=== PATIENT | female | born 1965 ===

== ENCOUNTER 2021-05-24 06:57 | Outpatient (CLI) | payer BC, SELFPAY ==
[2021-05-24 07:34] LABS: Alanine Aminotransferase 66 U/L (4-35); Albumin Level 4.5 g/dL (3.5-5.1); Alkaline Phosphatase 81 U/L (38-126); Anion Gap 7 mmol/L (8-16); Aspartate Amino Transferase 63 U/L (14-36); Bilirubin,Total 0.5 mg/dL (0.2-1.3); Blood Urea Nitrogen 13 mg/dL (7-17); Calcium 8.8 mg/dL (8.4-10.2); Carbon Dioxide 24 mmol/L (22-30); Chloride 106 mmol/L (98-107); Cholesterol 238 mg/dL (0-200); Estimated Glomerular Filt Rate > 60; Glucose 96 mg/dL (65-110); HDL Direct 62 mg/dL; Potassium 4.1 mmol/L (3.4-5.0); Sodium 137 mmol/L (137-145); Triglycerides 153 mg/dL (<150)
[2021-05-24 07:37] LABS: Basophils Absolute Auto 0.1 K/mm3 (0.0-0.1); Basophils Percent Auto 1.4 % (0.2-1.2); Eosinophils Absolute Auto 0.2 K/mm3 (0-0.3); Eosinophils Percent Auto 2.3 % (0-4.4); Hematocrit 48.8 % (37.0-47.0); Hemoglobin 16.3 g/dL (12.0-15.0); Immature Granulocyte Absolute 0.01 K/mm3 (0.00-0.031); Immature Granulocyte Percent A 0.2 % (0-0.5); Immature Platelet Fraction Pct 8.8 % (0.9-11.2); Lymphocytes Absolute Auto 2.56 K/mm3 (0.9-3.2); Lymphocytes Percent Auto 38.6 % (18.3-44.2); Mean Corpuscular HGB Conc 33.4 g/dl (32-36); Mean Corpuscular Volume 98.8 fl (80-100); Mean Platelet Volume 11.7 fl (7.4-10.4); Monocytes Absolute Auto 0.7 K/mm3 (0.1-0.6); Monocytes Percent Auto 10.6 % (2.6-8.5); Neutrophils Absolute Auto 3.1 K/mm3 (1.3-6.7); Neutrophils Percent Auto 46.9 % (45.5-73.1); Platelet Count Result 127 k/mm3 (150-375); Red Blood Count 4.94 M/mm3 (4.2-5.4); Red Cell Distribution Width 15.5 % (11.5-14.5); White Blood Count 6.6 K/mm3 (4.5-10.0)
[2021-05-24 07:45] LABS: LDL Cholesterol Direct 141 mg/dL
== END 2021-05-24 06:58 | disposition home or self-care (01) ==
LOC: ANHLAB 07:01
PROVIDERS: PCP Family Medicine; Visit Provider Physician Assistant Medical
DX: I10 Essential (primary) hypertension (principal); Z13.220 Encounter for screening for lipoid disorders
CPT/HCPCS: 36415; 80053; 80061; 84443; 85025; 85055

== ENCOUNTER 2021-06-02 19:10 | Emergency (ER) | payer BC, SELFPAY ==
[2021-06-02 19:52] VITALS: BP 229/118; PULSE 97; RESP 18; TEMP 36.6; O2SAT 98
--- NOTE | 2021-06-02 20:49 | PC.NURSE ---
pt left before being seen by provider at this time. pt states i cant wait any longer.
== END 2021-06-02 21:39 | disposition left against medical advice (07) ==
PROVIDERS: PCP Family Medicine
DX: R51.9 Headache, unspecified (principal)
CPT/HCPCS: 99199

== ENCOUNTER 2024-04-24 12:02 | Emergency (ER) | payer OTHER, SELFPAY ==
--- NOTE | ~2024-04-24 | XR_ITS ---
EXAMINATION: XR ankle LT min 3V DATE: 04/24/2024 12:54 INDICATION: Lateral left ankle pain. Injury. TECHNIQUE: 4 views of left ankle were obtained. COMPARISON: None. FINDINGS: Alignment is normal. No fracture. Joint spaces are normal. There is an enthesophyte at plan tar aspect of calcaneal tuberosity. IMPRESSION: 1. No fracture. Reviewed, dictated and finalized at location A. [facility] IMPRESSION: 1. No fracture.
[2024-04-24 12:15] VITALS: BP 196/97; PULSE 108; RESP 16; TEMP 37; O2SAT 97
--- NOTE | 2024-04-24 12:21 | ED.LOWEXIN ---
HPI - Extremity Injury (Lower) General Chief Complaint: Extremity Injury, Lower Stated Complaint: Injured Left Ankle Source: patient Mode of arrival: ambulatory Limitations: no limitations History of Present Illness HPI Narrative: 58 y/o female presented for c/o left ankle pain x2 days. States she fell out of bed causing her to twist the ankle. Has been able to bear weight. Reports swelling to outer ankle, and tender to touch. Denies bruising, deformity, numbness, tingling or weakness of the extremity. Took ibuprofen and had RENATO wrap. Related Data Home Medications ?Medication ?Instructions ?Recorded ?Confirmed ?Last Taken ?Type aspirin 81 mg capsule,delayed mg PO 07/01/21 08/11/21 Unknown History release folic acid 1 mg tablet 1 mg PO DAILY 07/27/21 08/11/21 Unknown History nicotine 14 mg/24 hr daily 1 patch transdermal DAILY 07/27/21 08/11/21 Unknown History transdermal patch potassium chloride 20 mEq 20 meq PO DAILY 07/27/21 08/11/21 Unknown History tablet,extended release thiamine HCl (vitamin B1) 100 mg 100 mg PO DAILY 07/27/21 08/11/21 Unknown History tablet Allergies Allergy/AdvReac Type Severity Reaction Status Date / Time No Known Allergies Allergy Mild Verified 04/24/24 12:10 Review of Systems Review of Systems: CONSTITUTIONAL: Denies body aches, fever, chills CARDIOVASCULAR: Denies chest pain, palpitations, or edema. RESPIRATORY: Denies cough or dyspnea. GASTROINTESTINAL: Denies abdominal pain, nausea, vomiting, or diarrhea. SKIN: Denies rash, itching, or wounds. MUSCULOSKELETAL: reports left ankle pain NEUROLOGIC: Denies numbness, tingling, or weakness. All systems reviewed & are unremarkable except as noted in HPI and below PMFSH Past Medical History Medical History BMI greater than 30 BMI 31.0-31.9,adult BMI 30.0-30.9,adult BMI 32.0-32.9,adult Surgical History Surgical History H/O Spinal surgery Family History Family History Father Alcoholic cirrhosis of liver Mother , C-diff C. difficile colitis Hypertension Sibling Diabetes mellitus Heart disease Social History Social History Smoking status: Current every day smoker Tobacco type: cigarettes Second hand tobacco smoke exposure: Yes Alcohol intake: current Substance use: current Substance use type: marijuana Other substance usage details: medical marijuana Living arrangements: with roommate(s) Occupation/Education: occupation Additional occupation/education comments: [employer] Gender identity (if verbalized by the patient): Female Comments At time of signature, I have reviewed and agree with nursing past medical, surgical, social and family history unless otherwise noted. Please see nursing chart for further information. There is no relevant family history pertinent to the presenting complaint Exam Narrative: GENERAL: Well-appearing CHEST: Speaks in full sentences. No respiratory distress. HEART: Regular rate and rhythm. Normal and equal peripheral pulses. EXTREMITIES: Left foot has normal strength and sensation, Full range of motion with flexion/extension/rotation of ankle, but endorses pain with movement at ankle. Left lateral ankle swelling with tenderness to palpation reported. No ecchymosis, No open wounds, or obvious deformity; alignment normal, pulse palpable and equal bilaterally, skin warm, dry, pink. Capillary refill less than 3 seconds. Utilizing w/c. SKIN: Warm, dry, no rash. NEURO: Alert and oriented x3. PSYCH: Normal mood and affect Course Course Emergency Course: Patient is aware of diagnosis, understands and agrees to treatment plan. Anticipatory guidance given. Patient agrees to follow-up as directed and is aware of reasons to seek care at the emergency department. Portions of this record may have been created with voice recognition software Level of Care: Express Care Visit Vital Signs Vital signs: Vital Signs Temperature 98.6 F 04/24/24 12:15 Pulse Rate 108 H 04/24/24 12:15 Respiratory Rate 16 04/24/24 12:15 Blood Pressure 196/97 H 04/24/24 12:15 Pulse Oximetry 97 04/24/24 12:15 Temperature 98.6 F 04/24/24 12:15 Pulse Rate 108 H 04/24/24 12:15 Respiratory Rate 16 04/24/24 12:15 Blood Pressure 196/97 H 04/24/24 12:15 Pulse Oximetry 97 04/24/24 12:15 Reviewed MDM - Extremity Injury (Lower) MDM Narrative Medical decision making narrative: Discussed physical exam findings and x-ray. Renato wrap applied to left ankle. Advised supportive measures and signs/symptoms to go to the ER. Pt is appropriate for outpt treatment and f/u. Differential Diagnosis Differential diagnosis: Likely ankle sprain and strain and ankle fracture Imaging Data Radiologist's impression: Patient: Marva Joyner : 1965 MR#: [id number] Age: 58 Acct:[id number] Loc: [facility] ADM Date: 04/24/24Attending Dr: Ordering Physician: Susannah Decker APRN Date of Service: 04/24/24 Procedure(s): XR ankle LT min 3V Accession Number(s): [id number] cc: Susannah Decker APRN; Ankit, Cooper Villagran APRN~ EXAMINATION: XR ankle LT min 3V DATE: 04/24/2024 12:54 INDICATION: Lateral left ankle pain. Injury. TECHNIQUE: 4 views of left ankle were obtained. COMPARISON: None. FINDINGS: Alignment is normal. No fracture. Joint spaces are normal. There is an enthesophyte at plantar aspect of calcaneal tuberosity. IMPRESSION: 1. No fracture. Discharge Plan Discharge Clinical Impression: Ankle sprain and strain Patient Disposition: Home, Self-Care Condition: Stable Instructions: Ankle Sprain (ED) Additional Instructions: Rest and elevate the left leg; bear weight as tolerated. Avoid running, jumping or excessive walking until symptoms fully resolve. Apply ice 15-20 minute intervals several times a day Keep it wrapped with RENATO or use a soft ankle splint Motrin 800mg every 8 hours, alternate with Tylenol 1000mg every 8 hours as needed pain Follow up with your primary care provider as needed Go to the ER for worsening symptoms or concerns Patient Language: Mongolian Prescriptions: No Action aspirin 81 mg capsule,delayed release(DR/EC) PO folic acid 1 mg tablet 1 mg PO DAILY nicotine 14 mg/24 hr patch 24 hour 1 patch transdermal DAILY potassium chloride 20 mEq tablet extended release 20 meq PO DAILY thiamine HCl (vitamin B1) 100 mg tablet 100 mg PO DAILY sertraline [Zoloft] 25 mg tablet 25 mg PO DAILY Qty: 30 3RF amlodipine [Norvasc] 5 mg tablet 5 mg PO DAILY Qty: 30 2RF losartan 25 mg tablet 25 mg PO DAILY Qty: 30 2RF Follow-up/Referrals: Ankit,Cooper Villagran APRN [Primary Care Provider] - Stand Alone Forms: Work/School Release IP Time of Disposition: 13:08
== END 2024-04-24 13:09 | disposition home or self-care (01) ==
PROVIDERS: Emergency Provider Nurse Practitioner Family; PCP Nurse Practitioner
DX: S93.402A Sprain of unspecified ligament of left ankle, initial encounter (principal); S96.912A Strain of unspecified muscle and tendon at ankle and foot level, left foot, initial encounter; W06.XXXA Fall from bed, initial encounter; F17.210 Nicotine dependence, cigarettes, uncomplicated; F12.90 Cannabis use, unspecified, uncomplicated; Z79.82 Long term (current) use of aspirin
CPT/HCPCS: 73610; 99213; G0463

== ENCOUNTER 2024-08-02 13:49 | Observation (INO) | payer OTHER, SELFPAY ==
[2024-08-02] VITALS (7 sets, daily range): BP systolic 124–183; BP diastolic 67–96; PULSE 93–104; RESP 18–20; TEMP 36.4–36.8; O2SAT 94–96
--- OUTSIDE RECORDS SUMMARY | 2024-08-02 13:50 | XMS_ITS | Continuity of Care Document ---
Author Organization [facility] Address [address] [place] [address] [address] [place] [address] Phone Care Team Providers Care Brim Welt Sewing Machine Operator Name Role Phone Karri Ramos Unavailable Unavailable Advance Directives Directive Yes / No Effective Date File Name No Information Encounters Encounter Description Practice Location Reason(s) For Visit Diagnoses Date Provider Providers Copied on Encounter [facility], [id number] [place] [address] [address], [place], [place], [id number], [place] tel:[phone] [facility] [place] No Information Dec-0 9-200 5 Doisy Edward. [address] [facility] [place] , [address], [place], [address], [place]. tel:[phone] Family History Family Member Type Diagnosis Age At Onset No Information Payers Payer name Insurance type Covered alliance party ID Authoriza tion(s) Medicaid [facility] [id number] Social History Type Description Quantity Date Captured Comments Sex Female Smoking Status No Information Chief Complaint And Reason For Visit No Information Reason For Referral Reason For Referral No Information History Of Present Illness Encounter Date Complaint History Of Prese nt Illness No Information Functional Status Date Functional Assessmen t No Information Instructions Date Instruction Additional Infor mation No Information Assessments Type Assessment Date No Information Patient Care Teams Name Effective Dates (start - stop) Status Members No Information
--- OUTSIDE RECORDS SUMMARY | 2024-08-02 13:51 | XMS_ITS | Clinical Summary ---
Author Organization [facility] Address [address] [facility] [place] [address] Care Team Providers Care Pattern Chain Builder Name Role Phone Vinnie Polanco MD Primary Care Provider [phone] Source Comments [facility],non-owned Affiliates and Associated Physician Practices is amultiple site organization consisting of ambulatory clinics and hospital sitesin [place], [place], [place] and [place]. This disclosure is being madepursuant to the Care Everywhere program and may not contain all information available regarding this patient. Last updated 17.[facility] Health Allergies No known active allergies Social History Tobacco Use Types Packs/Day Years Used Date Smoking Tobacco: Heavy Smoker Cigarettes 1 15 Smokeless Tobacco: Never Tobacco Cessation:Ready to Q uit: No; Counseling Given: Yes Alcohol Use Standard Drinks/Week Comments Yes 0 (1 standard drink = 0.6 oz pur e alcohol) AUDIT-C Answer Date Recorded Q1: How often do you have a drink containing alc ohol? 2-4 times a month 03/10/2021 Q2: How many drinks containi ng alcohol do you have on a typical day when you are drinking? 10 or more 03/10/2021 Q3: How often do you have si x or more drinks on one occasion? 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 Gender Identity Not on file Sexual Orientation Not on file Last Filed Vital Signs Vital Sign Reading Time Taken Comments Blood Pressure 181/102 03/10/2021 11:28 AM CAFETERIA TEAM LEADER Pulse 110 03/10/2021 11:28 AM CAFETERIA TEAM LEADER Temperature 36.8 C (98.2 F) 03/10/2021 11:28 AM CAFETERIA TEAM LEADER Respiratory Rate 14 03/10/2021 11:28 AM CAFETERIA TEAM LEADER Oxygen Saturation - - Inhaled Oxygen Concentration - - Weight 85.1 kg (187 lb 9.6 oz) 03/10/2021 11:28 AM CAFETERIA TEAM LEADER Height 165.1 cm (5' 5) 03/10/2021 11:28 AM CAFETERIA TEAM LEADER Body Mass Index 31.22 03/10/2021 11:28 AM CAFETERIA TEAM LEADER Plan of Treatment Health Maintenance Due Date Last Done Comments COLOGUARD (AGES 45-75) - COL ON CA SCREENING 1965 COLON MONITORING 1965 COLONOSCOPY - COLON CA SCREENING 1967 CT COLONOGRAPHY - COLON CA SCREENING 1965 Colorectal Cancer Screening 1965 FIT - COLON CA SCREENING 1965 FLEX SIG - COLON CA SCREENING 1965 LIPID TESTING 1965 MAMMOGRAM 1965 HIV SCREENING 11/17/1982 HEPATITIS C SCREENING 11/13/1985 DTAP/TDAP/TD VACCINES (1 - Tdap) 11/17/1986 HEPATITIS B VACCINE (1 of 3 - 19+ 3-dose series) 11/17/1986 PNEUMOCOCCAL VACCINE 50+ (1 of 1 - PCV) 11/17/2017 ZOSTER VACCINE (1 of 2) 11/17/2017 COVID-19 VACCINE ( - 2023-2 5 season) 2023 DEPRESSION SCREENING 03/13/2024 INFLUENZA VACCINE (Season Ended) 2024 HIB VACCINE Aged Out No longer eligi ble based on patient's age to complete this topic HPV VACCINE Aged Out No longer eligi ble based on patient's age to complete this topic MENINGOCOCCAL (Group B) VACC INE SHARED DECISION-MAKING Aged Out No longer eligibl e based on patient's age to complete this topic MENINGOCOCCAL GROUPS A/C/Y/W VACCINE Aged Out No longer eligible b ased on patient's age to complete this topic Care Teams Pattern Chain Builder Relationship Specialty Start Date End Date Vinnie Polanco MD [address] [place] [address] PCP - General 06/14/22
--- OUTSIDE RECORDS SUMMARY | 2024-08-02 13:51 | XMS_ITS | Patient Health Record ---
Author Organization [facility] Address [address] [place] [address] Care Team Providers Care Ab Initio Etl Developer Name Role Phone Cooper Pham Primary Care Provider Lashawn Floyd Unavailable [phone] Daniela Mcdonald Unavailable [phone] Allergies No Known Allergies Reason For Referral Reason SOB on exertion, int ermittent chest pain, intermittent BLE requests referral and stress test/workup Diagnosis 1 SOB (shortness of br eath) on exertion (R06.02) Diagnosis 2 Edema of both legs ( R60.0) Referral Organization [facility] Referring Provider First Name Cooper Referring Provider Last Name Ankit [facility]erring [facility] Referred Provider [facility], Cardiology Referred Provider Specialty Cardiology General Notes JULISA Zarate Stephanie N 11/15/2023 08:57:40 AM >will send referral when note from visit is available., JULISA Zarate Stephanie N 11/21/2023 03:02:19 PM >referral faxed. confirmation pending.Tessa RN, Stephanie N 12/13/2023 03:56:08 PM >referral was successfully faxed and a letter mailed notifying Marva. Clinical Notes [facility], Cardiology , [address] [place] [address] [address] , [place], [place] [address], , Referral Priority Routine Medications Medication SIG (Take, Route, Frequency, Duration) Notes Start Date End Date Status amLODIPine Besylate 5 MG 1 tablet Orally Once a day Not-Taking Losartan Potassium 25 MG 1 tablet Orally Once a day Not-Taking hydroCHLOROthiazide 25 MG 1 tablet in morning Orally Once a day Not-Taking Lidocaine 4 % 1 patch as needed Externally Once a day 05/16/2023 Not-Taking Metoprolol Succinate 25 MG 1 capsule Ora lly Once a day Not-Taking dilTIAZem HCl ER Coated Bead s 240 MG 1 capsule Orally Once a day Not-Taking Sertraline HCl 25 MG 1 tablet Orally Once a day Active Furosemide 40 MG TAKE 1 TABLET BY MOUTH DAILY for 30 days As needed Active Social History Tobacco Use: Social History Observation Description Date Details (start date - stop date) Current Smoker NA - NA Sex Assigned At : Social History Observation Description Sex Assigned At Female Dont use, Tobacco Use/Smoking Question Answer Notes Are you a current every day smoker Additional Findings: Tobacco User Moderate cigar ette smoker (10-19 cigs/day) Tobacco Control (Standard) Question Answer Notes Tobacco use: Current smoker Problems Problem Type SNOMED Code ICD Code Onset Dates Problem Status W/U Status Risk Notes Problem Tobacco user (660754140) Nicotine dependence, unspecified, uncomplicated (F17.200) Active confirmed Problem Anxiety disorder (425214080) Anxiety disorder, unspecified (F41.9) Active confirmed Problem Essential hypertension (78024156) Essential (primary) hypertension (I10) 09/19/19 22 Active confirmed Problem 01306967 Tobacco dependen ce (F17.200) Active confirmed Problem Carpal tunnel syndrome (83957838) Carpal tunnel syndrome (G56.00) Active confirmed Problem Trigger finger (7213873) Trigger finger (M65.30) Active confirmed Problem Alcohol use disorder (1877826857) Alcohol use disorder (F10.99) Active confirmed Problem Nicotine dependence (50484723) Nicotine dependence (F17.200) Active confirmed Problem 942057200 Obesity (BMI 30-39.9) (E66.9) Active confirmed Problem Adjustment disorder (69595248) Grief reaction (F43.20) Active confirmed Problem 21563988 Hyperlipidemia, unspecified hyperlipidemia type (E78.5) Active confirmed Problem Obesity (592480430) Obesity, unspecified classification, unspecified obesity type, unspecified whether serious comorbidity present (E66.9) Active confirmed Problem Obese class II (969277343360613 ) Body mass index [BMI] 35.0-35.9, adult (Z68.35) Active confirmed Vital Signs Heart Rate 112 /min 01/25/2024 Temperature 98.9 degrees Fahrenheit 01/25/2024 Respiratory Rate 16 /min 01/25/2024 Oximetry 97 % 01/25/2024 Blood pressure diastolic 82 mm Hg 01/25/2024 Height 65 in 01/25/2024 Blood pressure systolic 146 mm Hg 01/25/2024 Weight 219.6 lbs 01/25/2024 BMI 36.54 kg/m2 01/25/2024 Encounters Encounter Location Date Provider Diagnosis [address] [address] 11/07/2023 Cooper Pham SOB (shortness of breath) on exertion R06.02 ; Edema of both legs R60.0 ; Essential (primary) hypertension I10 ; Hyperlipidemia, unspecified hyperlipidemia type E78.5 ; Screening for metabolic disorder Z13.228 ; Screening for deficiency anemia Z13.0 ; Obesity (BMI 30-39.9) E66.9 ; Nutritional counseling Z71.3 and Nicotine dependence, unspecified, uncomplicated F17.[address] [address] 01/25/2024 Cooper Pham Grief reaction F43.2 0 ; Anxiety disorder, unspecified F41.9 ; Obesity (BMI 30-39.9) E66.9 ; Nutritional counseling Z71.3 and Nicotine dependence, unspecified, uncomplicated F17.[address] [address] 01/29/2024 Lashawn Floyd Grief reaction F43.2 0 and Anxiety disorder, unspecified F41.[address] [address] 02/05/2024 Daniela Mcdonald [facility] [address] [address] 04/23/2024 Cooper Pham Assessments Encounter Date Diagnosis (ICD Code) Assessment Notes Treatment Notes Treatment Clinical Notes Section Notes 11/07/2023 SOB (shortness of breath) on exertion (ICD-10 - R06.02) 11/07/2023 Edema of both legs (ICD-10 - R60.0) 01/25/2024 Anxiety disorder, unspecified (ICD-10 - F41.9) 01/25/2024 Grief reaction (ICD-10 - F43.20) Appointment made with psychiatry, will contact [place] for counseling services. 01/29/2024 Anxiety disorder, unspecified (ICD-10 - F41.9) Continue sertraline. Discussed this is a daily medication, not as needed. Discussed r/b/se. 01/29/2024 Grief reaction (ICD-10 - F43.20) Email sent to Arnulfo Cho to address any local grief groups client may be able to look into, will f/u once response is received. 01/25/2024 Obesity (BMI 30-39.9) (ICD-10 - E66.9) 11/07/2023 Essential (primary) hypertension (ICD-10 - I10) 11/07/2023 Hyperlipidemia, unspecified hyperlipidemia type (ICD-10 - E78.5) 01/25/2024 Nutritional counseling (ICD-10 - Z71.3) 01/25/2024 Nicotine dependence, unspecified, uncomplicated (ICD-10 - F17.200) 11/07/2023 Screening for metabolic disorder (ICD-10 - Z13.228) 11/07/2023 Screening for deficiency anemia (ICD-10 - Z13.0) 11/07/2023 Obesity (BMI 30-39.9) (ICD-10 - E66.9) 11/07/2023 Nutritional counseling (ICD-10 - Z71.3) 11/07/2023 Nicotine dependence, unspecified, uncomplicated (ICD-10 - F17.200) 01/29/2024 Other Reasons, potent ial benefits, potential risks, interactions and side effects of all medications were discussed.The Patient/Guardian asked appropriate questions, appeared to understand the answers, and decided to accept the treatment and continue being followed.Alternatives and expected course without treatment were reviewed.The Patient/Guardian is aware of the need to contact the office or return for an earlier appointment if any problems or concerns arise. May also contact the 24-hour crisis hotline (R), refer to the closest emergency room or call 911 if new symptoms arise of existing symptoms worsen.The Patient/Guardian is aware that this would apply to symptoms like: suicidal ideation, homicidal ideation, high risk behaviors, manic symptoms, psychotic symptoms, physical symptoms, or any other symptoms that may be dangerous to self or others.Greater than 50% of time spent on coordination and counseling where psychopharmacology as well as psychotherapeutic interventions were discussed along with review of treatments in the past.Education provided concerning need for adequate hydration.Patient/Gua rdian verbalized understanding of education, treatment plan and follow up. Plan Of Treatment No Information Insurance Providers Payer Name Payer Address Payer Phone Subscriber Number Group Number Insured Name Patient Relationship to Insured Coverage Start Date Coverage End Date [facility] Plan [address] [place], [place] [id number] [place] [address] [address] [id number] Marva Murray Self - patient is the insured 2 [address] [facility] [address] [place] [address] [id number] Marva Murray Self - patient is the insured [address] [place] [address] [address] [id number] 3 Marva Murray Self - patient is the insured 2 4 Medications Administered Medication Instructions Date of Administration Dosage Notes Vivitrol 10/05/2021 380 mg Pt los well Medical (General) History Medical History History ICD Code Depression Anxiety Hypertension Hx of alcohol abuse Surgical History Surgery Date(Month/Year) 3 lumbar back surgery Right wrist surgery Left breast cyst removal Hospitalization History Reason Date(Month/Year)
--- OUTSIDE RECORDS SUMMARY | 2024-08-02 13:51 | XMS_ITS ---
Author Organization [facility] Address [address] [place] [address] Care Team Providers Care Network And Threat Support Specialist Name Role Phone Cooper Pham Primary Care Provider [phone] REASON FOR VISIT Not eating/ depressed Social History Sex Assigned At : Social History Observation Description Sex Assigned At Female Encounters Encounter Location Date Provider Diagnosis [address] [address] 01/23/2024 Cooper Pham Plan Of Treatment No Information Progress Notes * SANJU ClarashaguftaDOB:[birth year] (58 yo F)Acc No.[id number]:01/23/2024 UNLOCKED PROGRESS NOTE Progress Notes Patient: Marva JOHNSON Provider: PAYTON Vega, AGPCNP-BC :1965 A ge:58 Y S ex:Female Date:01/23/2024 Address:[address] [place], [place] [id number] Subjective: * Chief Complaints: * 1 . Not eating/ depressed. * Medical History: Objective: * Vitals: Assessment: Plan: * Treatment: * * Electronic signature of Christophe Pham APRN, [phone] on 08/02/2024 at 01:51 PM CDT Sign off status: Pending * Provider: Philly Pham, MSN, AGPCNP-BC Date: 1 03/24/2023 Generated for Printing/Faxing/eTransmitting on: 0 08/02/2024 01:51 PM CDT
--- OUTSIDE RECORDS SUMMARY | 2024-08-02 13:51 | XMS_ITS | Data Portability ---
Author Organization [facility] Mihir Prado Address [address] [place] [address] Care Team Providers Care Batch Weigher Name Role Phone GRACIE WELCH Primary Care Provider STELLA HARO Director Of Community Life [phone] Assessment No assessment recorded. Plan of Treatment Reminders Order Date Submit Date Provider Last Modified By Organization Details Last Modified Time Details Appointments [facility] 30 2024 09:00A Arnulfo Nelson MD Not available Not available Not available [facility] 30 2024 01:00P Arnulfo Chacon MD Not available Not available Not available Lab gamm a-gl utam yl burnham sfer ase (ggt ), seru m 2018 019 [facility], [address] [place] [address], [address], [place], [address], 05/01/2018 20:08:48 hepa buddy s C Ab, sign al-t o-cu toff , seru m or plas ma 2018 019 [facility], [address], [address], [place], [address], 04/30/2018 10:31:17 hepa buddy s C viru s RNA, kaylah t, PCR, seru m or plas ma 2018 019 [facility], [address], [address], [place], [address], 05/01/2018 20:08:47 TSH + free T4, seru m 2017 018 [facility], [address], [address], [place], [address], 01/24/2018 06:22:43 HbA1 c (hem oglo bin A1c) , bloo d 2017 018 [facility], [address], [address], [place], [address], 01/24/2018 06:22:45 lipi d mary ellene l, seru m 2017 018 [facility], [address], [address], [place], [address], 01/24/2018 06:22:45 CMP, seru m or plas ma 2017 018 [facility], [address], [address], [place], [address], 01/24/2018 06:22:44 CBC w/ auto diff 2017 018 [facility], [address], [address], [place], [address], 01/24/2018 06:22:43 CK (cre atin e jb se), tota l, seru m 2017 018 [facility], [address], [address], [place], [address], 01/24/2018 06:22:46 feca l occu lt bloo d, immu noas say, stoo l 2017 018 [facility], [address], [address], [place], [address], 01/08/2018 17:45:27 urin ce is, dips tick 2016 017 svjett In-Office Order, Internal Use Only DO Not Attach Compendium DO Not Attach Compendium, Do Not Delete/merge, [id number] 08/19/2016 15:19:25 preg nanc y test , urin e 2016 017 svjett In-Office Order, Internal Use Only DO Not Attach Compendium DO Not Attach Compendium, Do Not Delete/merge, [id number] 08/19/2016 15:19:25 bact eria l vagi nosi s + vagi scott s pane l, vagi nal 2016 017 [facility], [address] [place] [address], [address], [place], [address], 08/23/2016 06:05:17 pap, IG + HPV, cerv ical 2016 017 [facility], [address], [address], [place], [address], 08/23/2016 08:40:48 RPR (rap id plas ma reag in), seru m 2016 017 [facility], [address] [place] [address], [address], [place], [address], 08/20/2016 08:22:18 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) igg Ab, seru m 2016 017 [facility], [address] [place] [address], [address], [place], [address], 08/20/2016 08:22:18 hepa buddy s pane l (A+B +C), acut e, seru m 2016 017 [facility], [address] [place] [address], [address], [place], [address], 08/20/2016 08:22:15 hepa buddy s B surf kelsi Ab, qual itat raghavendra, seru m 2016 017 [facility], [address], [address], [place], [address], 08/20/2016 08:22:17 HIV 1+2 AB + HIV 1 p24 Ag, qual itat raghavendra immu noas say, seru m 2016 017 [facility], [address] Joe [address]ia, [address], [address], 08/20/2016 08:22:18 TSH + free T4, seru m 2016 017 [facility], [address] [place] [address], [address], [place], [address], 08/20/2016 08:22:14 prol acti n, seru m 2016 017 [facility], [address] [place] [address], [address], [place], [address], 08/20/2016 08:22:16 FSH (fol licl e-st imul atin g horm one) , seru m 2016 017 [facility], [address], [address], [place], [address], 08/20/2016 08:22:16 estr adio l, seru m 2016 017 [facility], [address], [address], [place], [address], 08/20/2016 08:22:17 CBC w/ auto diff 2016 017 [facility], [address], [address], [place], [address], 08/20/2016 08:22:15 TSH + free T4, seru m 2016 017 [facility], [address], [address], [place], [address], 08/23/2016 06:05:17 CMP, seru m or plas ma 2016 017 [facility], [address], [address], [place], [address], 07/26/2016 14:32:28 CBC w/ auto diff 2016 017 [facility], [address], [address], [place], [address], 08/23/2016 06:05:18 CK (cre atin e jb se), tota l, seru m 2016 017 [facility], [address], [address], [place], [address], 07/26/2016 14:32:32 HbA1 c (hem oglo bin A1c) , bloo d 2016 017 [facility], [address], [address], [place], [address], 07/26/2016 14:32:35 lipi d malathi l, seru m 2016 017 [facility], [address], [address], [place], [address], 07/26/2016 14:32:33 Referral chir opra ctor refe rral - Plea se fulton and leticia colón ... 2018 019 [email or web address] Not available 08/16/2018 14:14:07 colo nosc opy refe rral - Plea se call aleida ent to emma houser ezekielt . Campbell colón 2018 019 [facility] Not available 08/16/2018 14:33:39 nutr itio nist / buddy an refe rral 2016 0[facility], [address], [place], [address], 09/07/2016 15:42:15 Procedures None minor rded . Surgeries None minor rded . Imaging MAMM O, scre enin g, digi ganesh, bila kane l [address] ([facility]), [address] [place], [address], 01/08/2018 17:53:19 MAMM O, diag nost ic, digi ganesh, bila kane l 2016 017 [facility] ([facility]), [address] [place], [address], 08/22/2016 18:05:43 US, ariel st, bila kane l, w/ axil la 2016 017 [facility] ([facility]), [address] [place], [address], 08/22/2016 18:27:27 US, pelv is, burnham sabd omin al + burnham svag inal [address] ([facility]), [address] [place], [address], 08/19/2016 17:41:35 XR, ches t, 2 view [address] ([facility]), [address], [place], [address], 07/26/2016 14:42:11 Medication Orders losa rtan 100 mg tabl et 2018 019 [id number], [address], [place], [place], [id number], 04/30/2018 10:22:18 amlo dipi ne 5 mg tabl et 2018 019 [facility][id number], [address], [place], [place], [id number], 04/30/2018 10:22:18 idalia laurel 14 mg/2 4 hr gloria y burnham sder mal patc h 2017 018 [facility] #81995, [address], [place], [place], [id number], 01/08/2018 17:47:26 losa rtan 100 mg tabl et 2017 018 [facility] #54265, [address], [place], [place], [id number], 01/08/2018 17:46:07 amlo dipi ne 5 mg tabl et 2017 018 [facility] #79814, [address], [place], [place], [id number], 01/08/2018 17:47:07 idalia laurel 14 mg/2 4 hr gloria y burnham sder mal patc h 2016 017 [facility] #15602, [address], [place], [place], [id number], 07/26/2016 14:28:33 losa rtan 50 mg tabl et 2016 017 [facility] #81012, [address], [place], [place], [id number], 07/26/2016 14:24:10 busp iron e 5 mg tabl et 2016 017 dgriggsma [facility]56335, [address], [place], [place], [id number], 04/30/2018 09:58:01 senthil lopr am 10 mg tabl et 2016 017 [facility] #88675, [address], [place], [place], [id number], 07/26/2016 14:29:12 Patient TargetsNo targets recorded. Patient Instructions Encounter Date Encounter Id Patient Instructions Last Modified By Organization Details Last Modified Time 08/19/2016 [id number] When You Want to Lose Weight: Care Instructions [email or web address] Not available 08/19/2016 14:59:44 elevated blood pressure: care instructions [email or web address] Not available 08/19/2016 15:02:02 Well Visit, Ages 18 to 65: Care Instructions [email or web address] Not available 08/19/2016 15:00:03 breast lumps: care instructions svuyyuru Not available 08/19/2016 14:59:04 hot flashes during menopause: care instructions svuyyuru Not available 08/19/2016 15:02:50 abnormal uterine bleeding: care instructions svuyyuru Not available 08/19/2016 14:48:17 Vaginal Bleeding (Nonpregnancy): Care Instructions [email or web address] Not available 08/19/2016 14:49:23 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 Please eval and treat . Thank you ... Referring Physician: Karri Joseph, Family Medicine, Encounter Date: 04/30/2018 Colonoscopy Referral for Scr eening for malignant neoplasm of colon needs a screening colonoscopy .... Please call patient to schedule appt. Thank you Referring Physician: Karri Joseph, Family Medicine, Encounter Date: 04/30/2018 Results Created Date Observation Date Name Description Value Unit Range Abnormal Flag Note LastModifiedBy Organization Detail LastModifiedTime 08/20/19 17 08/19/2016 pregn carey test, urine HCG negati ve Not Available In-Office Order Internal Use Only DO Not Attach Compendium DO Not Attach Compendium, Do Not Delete/merge, 08/19/2016 14:31:29 08/20/19 17 08/19/2016 urina lysis , dipst ick Leukocytes Negati ve Not Available In-Office Order Internal Use Only DO Not Attach Compendium DO Not Attach Compendium, Do Not Delete/merge, 08/19/2016 14:30:24 08/20/19 17 08/19/2016 urina lysis , dipst ick Nitrite negati ve Not Available In-Office Order Internal Use Only DO Not Attach Compendium DO Not Attach Compendium, Do Not Delete/merge, 08/19/2016 14:30:24 08/20/19 17 08/19/2016 urina lysis , dipst ick Urobilinogen .2 Not Available In-Of fice Order Internal Use Only DO Not Attach Compendium DO Not Attach Compendium, Do Not Delete/merge, 08/19/2016 14:30:24 08/20/19 17 08/19/2016 urina lysis , dipst ick Protein Negati ve Not Available In-Office Order Internal Use Only DO Not Attach Compendium DO Not Attach Compendium, Do Not Delete/merge, 08/19/2016 14:30:24 08/20/1908/19/2016 urina lysis , dipst ick pH 7.0 Not Available In-Office Order Internal Use Only DO Not Attach Compendium DO Not Attach Compendium, Do Not Delete/merge, 08/19/2016 14:30:24 08/20/19 17 08/19/2016 urina lysis , dipst ick Blood Large Not Available In-Office Order Internal Use Only DO Not Attach Compendium DO Not Attach Compendium, Do Not Delete/merge, 08/19/2016 14:30:24 08/20/1908/19/2016 urina lysis , dipst ick Specific [place] 1.015 Not Available In-Off ice Order Internal Use Only DO Not Attach Compendium DO Not Attach Compendium, Do Not Delete/merge, 08/19/2016 14:30:24 08/20/19 17 08/19/2016 urina lysis , dipst ick Ketone Negati ve Not Available In-Office Order Internal Use Only DO Not Attach Compendium DO Not Attach Compendium, Do Not Delete/merge, 08/19/2016 14:30:24 08/20/1908/19/2016 urina lysis , dipst ick Bilirubin Negati ve Not Available In-Office Order Internal Use Only DO Not Attach Compendium DO Not Attach Compendium, Do Not Delete/merge, 08/19/2016 14:30:24 08/20/1908/19/2016 urina lysis , dipst ick Glucose Negati ve Not Available In-Office Order Internal Use Only DO Not Attach Compendium DO Not Attach Compendium, Do Not Delete/merge, 08/19/2016 14:30:24 08/20/1908/20/2016 TSH + free T4, serum TSH 0.724 uIU/m L 0.450- 4.500 Not Available [facility] ([facility]) [address] [place], [address], 08/20/2016 08:22:14 08/20/1908/20/2016 TSH + free T4, serum T4,free(dire ct) 1.08 NG/dL 0.82-1 .77 Not Available [facility] ([facility]) [address] [place], [address], 08/20/2016 08:22:14 08/20/1908/20/2016 CBC w/ auto diff WBC 9.3 x10e3 /uL 3.4-10 .8 Not Available [facility] ([facility]) [address] [place], [address], 08/20/2016 08:22:15 08/20/19 17 08/20/2016 CBC w/ auto diff RBC 4.96 x10e6 /uL 3.77-5 .28 Not Available [facility] ([facility]) [address] [place], [address], 08/20/2016 08:22:15 08/20/19 17 08/20/2016 CBC w/ auto diff hemoglobin 16.3 g/dL 11.1-1 5.9 above high normal Not Available [facility] ([facility]) [address] [place], [address], 08/20/2016 08:22:15 08/20/19 17 08/20/2016 CBC w/ auto diff hematocrit 48.3 % 34.0-4 6.6 above high normal Not Available [facility] ([facility]) [address] [place], [address], 08/20/2016 08:22:15 08/20/19 17 08/20/2016 CBC w/ auto diff MCV 97 fL 79-97 Not Available [facility] ([facility]) [address] [place], [address], 08/20/2016 08:22:15 08/20/19 17 08/20/2016 CBC w/ auto diff MCH 32.9 pg 26.6-3 3.0 Not Available [facility] ([facility]) [address] [place], [address], 08/20/2016 08:22:15 08/20/19 17 08/20/2016 CBC w/ auto diff MCHC 33.7 g/dL 31.5-3 5.7 Not Available [facility] ([facility]) [address] [place], [address], 08/20/2016 08:22:15 08/20/19 17 08/20/2016 CBC w/ auto diff RDW 14.7 % 12.3-1 5.4 Not Available [facility] ([facility]) [address] [facility], [place], [address], 08/20/2016 08:22:15 08/20/19 17 08/20/2016 CBC w/ auto diff platelets 244 x10e3 /uL 150-37 9 Not Available [facility] ([facility]) [address] [facility], [place], [address], 08/20/2016 08:22:15 08/20/19 17 08/20/2016 CBC w/ auto diff neutrophils 62 % Not Available [facility] ([facility]) [address] [facility], [place], [address], 08/20/2016 08:22:15 08/20/1908/20/2016 CBC w/ auto diff lymphs 29 % Not Available [facility] ([facility]) [address] [place], [address], 08/20/2016 08:22:15 08/20/1908/20/2016 CBC w/ auto diff monocytes 7 % Not Available [facility] ([facility]) [address] [place], [address], 08/20/2016 08:22:15 08/20/1908/20/2016 CBC w/ auto diff eos 1 % Not Available [facility] ([facility]) [address] [facility], [place], [address], 08/20/2016 08:22:15 08/20/1908/20/2016 CBC w/ auto diff basos 1 % Not Available [facility] ([facility]) [address] [facility], [place], [address], 08/20/2016 08:22:15 08/20/1908/20/2016 CBC w/ auto diff immature cells ROOM CLEANER Not Available [facility] ([facility]) [address] [facility], [place], [address], 08/20/2016 08:22:15 08/20/19 17 08/20/2016 CBC w/ auto diff neutrophils (absolute) 5.7 x10e3 /uL 1.4-7. 0 Not Available [facility] ([facility]) [address] [place], [address], 08/20/2016 08:22:15 08/20/19 17 08/20/2016 CBC w/ auto diff lymphs (absolute) 2.6 x10e3 /uL 0.7-3. 1 Not Available [facility] ([facility]) [address] [place], [address], 08/20/2016 08:22:15 08/20/1908/20/2016 CBC w/ auto diff monocytes(ab solute) 0.7 x10e3 /uL 0.1-0. 9 Not Available [facility] ([facility]) [address] [place], [address], 08/20/2016 08:22:15 08/20/1908/20/2016 CBC w/ auto diff eos (absolute) 0.1 x10e3 /uL 0.0-0. 4 Not Available [facility] ([facility]) [address] [place], [address], 08/20/2016 08:22:15 08/20/1908/20/2016 CBC w/ auto diff baso (absolute) 0.1 x10e3 /uL 0.0-0. 2 Not Available [facility] ([facility]) [address] [place], [address], 08/20/2016 08:22:15 08/20/1908/20/2016 CBC w/ auto diff immature granulocytes 0 % Not Available [facility] ([facility]) [address] [place], [address], 08/20/2016 08:22:15 08/20/1908/20/2016 CBC w/ auto diff immature grans (abs) 0.0 x10e3 /uL 0.0-0. 1 Not Available [facility] ([facility]) [address] [facility], [place], [address], 08/20/2016 08:22:15 08/20/19 17 08/20/2016 CBC w/ auto diff NRBC ROOM CLEANER Not Available [facility] ([facility]) [address] [facility] [place], [address], 08/20/2016 08:22:15 08/20/1908/20/2016 CBC w/ auto diff hematology comments: ROOM CLEANER Not Available [facility] ([facility]) [address] [facility] [place], [address], 08/20/2016 08:22:15 08/20/1908/20/2016 hepat itis panel (A+B+ C), acute , serum hep A Ab, IgM NEGATI VE negati ve Not Available [facility] ([facility]) [address] [facility] [place], [address], 08/20/2016 08:22:15 08/20/1908/20/2016 hepat itis panel (A+B+ C), acute , serum HBsAg screen NEGATI VE negati ve Not Available [facility] ([facility]) [address] [facility] [place], [address], 08/20/2016 08:22:15 08/20/1908/20/2016 hepat itis panel (A+B+ C), acute , serum hep B core Ab, IgM NEGATI VE negati ve Not Available [facility] ([facility]) [address] [facility] [place], [address], 08/20/2016 08:22:15 08/20/1908/20/2016 hepat itis panel (A+B+ C), acute , serum hep C virus Ab <0.1 S/co_ ratio 0.0-0. 9 NEGAT RAGHAVENDRA: < 0.8 INDET ERMIN ATE: 0.8 - 0.9 POSIT RAGHAVENDRA: > 0.9 [facility] RECOM MENDS THAT A POSIT RAGHAVENDRA HCV ANTIB NATHAN RESUL T BE FOLLO WED UP WITH A HCV NUCLE IC ACID AMPLI FICAT ION TEST (5507 [id number]). Not Available [facility] ([facility]) [address] [place], [address], 08/20/2016 08:22:15 08/20/19 17 08/20/2016 FSH (foll icle- stimu latin g hormo ne), serum FSH 5.7 mIU/m L ADULT FEMAL E: FOLLI CULAR PHASE 3.5 - 12.5 OVULA TION PHASE 4.7 - 21.5 LUTEA L PHASE 1.7 - 7.7 POSTM ENOPA USAL 25.8 - 134.8 Not Available [facility] ([facility]) [address] [place], [address], 08/20/2016 08:22:16 08/20/1908/20/2016 prola ctin, serum prolactin 7.5 NG/mL 4.8-23 .3 Not Available [facility] ([facility]) [address] [place], [address], 08/20/2016 08:22:16 08/20/1908/20/2016 estra diol, serum estradiol 46.0 pg/mL ADULT FEMAL E: FOLLI CULAR PHASE 12.5 - 166.0 OVULA TION PHASE 85.8 - 498.0 LUTEA L PHASE 43.8 - 211.0 POSTM ENOPA USAL <6.0 - 54.7 PREGN CAREY 1ST TRIME STER 215.0 - >4300 .0 GIRLS (1-10 YEARS ) 6.0 - 27.0 SOHAM ECLIA METHO DOLOG Y Not Available [facility] ([facility]) [address] [place], [address], 08/20/2016 08:22:17 08/20/1908/20/2016 hepat itis B surfa ce Ab, quali tativ e, serum hep B surface Ab, qual REACTI VE NON REACT RAGHAVENDRA: INCON SISTE NT WITH IMMUN ITY, LESS THAN 10 MIU/M L REACT RAGHAVENDRA: CONSI STENT WITH IMMUN ITY, GREAT ER THAN 9.9 MIU/M L Not Available [facility] ([facility]) [address] [facility], [place], [address], 08/20/2016 08:22:17 08/20/19 17 08/20/2016 RPR (rapi d plasm a reagi n), serum RPR NON REACTI VE non reacti ve Not Available [facility] ([facility]) [address] [facility], [place], [address], 08/20/2016 08:22:18 08/20/1908/20/2016 HIV 1+2 AB + HIV 1 p24 Ag, quali tativ e immun oassa y, serum HIV screen 4TH generation wrfx NON REACTI VE non reacti ve Not Available [facility] ([facility]) [address] [facility], [place], [address], 08/20/2016 08:22:18 08/20/1908/20/2016 hsv-2 (herp es simpl ex virus type 2) igg Ab, serum hsv 2 IgG, type spec <0.91 index 0.00-0 .90 NEGAT RAGHAVENDRA <0.91 EQUIV OCAL 0.91 - 1.09 POSIT RAGHAVENDRA >1.09 NOTE: NEGAT RAGHAVENDRA INDIC ATES NO ANTIB ODIES DETEC MAIA TO HSV-2 . EQUIV OCAL MAY SUGGE ST EARLY INFEC TION. IF CLINI LUCIO APPRO PRIAT E, RETES T AT LATER DATE. POSIT RAGHAVENDRA INDIC ATES ANTIB ODIES DETEC MAIA TO HSV-2 . Not Available [facility] ([facility]) [address] [facility], [place], [address], 08/20/2016 08:22:18 08/20/1908/22/2016 bacte rial vagin osis + vagin itis panel , vagin al atopobium vaginae HIGH - 2 score abnormal Not Available [facility] ([facility]) [address] [facility], [place], [address], 08/23/2016 06:05:17 08/20/1908/22/2016 bacte rial vagin osis + vagin itis panel , vagin al bvab 2 LOW - 0 score Not Available [facility] ([facility]) [address] [place], [address], 08/23/2016 06:05:17 08/20/1908/22/2016 bacte rial vagin osis + vagin itis panel , vagin al megasphaera 1 HIGH - 2 score abnormal CALCU LATE TOTAL SCORE BY JUAN Guerra THE 3 INDIV IDUAL BACTE RIAL VAGIN OSIS (BV) MARKE R SCORE S TOGET HER. TOTAL SCORE IS INTER PRETE D FOLLO WS: TOTAL SCORE 0-1: INDIC ATES THE ABSEN CE OF BV. TOTAL SCORE 2: INDET ERMIN ATE FOR BV. ADDIT IONAL CLINI SAE DATA SHOUL D BE EVALU ATED TO ESTAB TAMERA A DIAGN OSIS. TOTAL SCORE 3-6: INDIC ATES THE PRESE NCE OF BV. THIS TEST WAS DEVEL OPED AND ITS PERFO RMANC E RAYSA CTERI STICS DETER MINED BY [facility]. IT HAS NOT BEEN CLEAR ED OR APPRO LJ BY THE FOOD AND DRUG ADMIN ISTRA TION. THE FDA HAS DETER MINED THAT SUCH CLEAR ANCE OR APPRO MELI IS NOT NECES SALOME. Not Available [facility] ([facility]) [address] [facility], [place], [address], 08/23/2016 06:05:17 08/20/1908/22/2016 bacte rial vagin osis + vagin itis panel , vagin al jason albicans, BENI NEGATI VE negati ve Not Available [facility] ([facility]) [address] [facility], [place], [address], 08/23/2016 06:05:17 08/20/1908/22/2016 bacte rial vagin osis + vagin itis panel , vagin al jason glabrata, BENI NEGATI VE negati ve THIS TEST WAS DEVEL OPED AND ITS PERFO RMANC E RAYSA CTERI STICS DETER MINED BY [facility]. IT HAS NOT BEEN CLEAR ED OR APPRO LJ BY THE FOOD AND DRUG ADMIN ISTRA TION. THE FDA HAS DETER MINED THAT SUCH CLEAR ANCE OR APPRO MELI IS NOT NECFERNIE MCMAHON. Not Available [facility] ([facility]) [address] [place], [address], 08/23/2016 06:05:17 08/20/19 17 08/22/2016 bacte rial vagin osis + vagin itis panel , vagin al trich vag by BENI NEGATI VE negati ve Not Available [facility] ([facility]) [address] [place], [address], 08/23/2016 06:05:17 08/20/19 17 08/22/2016 bacte rial vagin osis + vagin itis panel , vagin al chlamydia trachomatis, BENI NEGATI VE negati ve Not Available [facility] ([facility]) [address] [place], [address], 08/23/2016 06:05:17 08/20/1908/22/2016 bacte rial vagin osis + vagin itis panel , vagin al neisseria gonorrhoeae, BENI NEGATI VE negati ve Not Available [facility] ([facility]) [address] [place], [address], 08/23/2016 06:05:17 08/20/1908/20/2016 TSH + free T4, serum TSH TNP uIU/m L NO SPECI MEN RECEI LJ. Not Available [facility] ([facility]) [address] [place], [address], 08/23/2016 06:05:17 08/20/1908/20/2016 TSH + free T4, serum T4,free(dire ct) TNP TEST NOT PERFO RMED Not Available [facility] ([facility]) [address] [place], [address], 08/23/2016 06:05:17 08/20/19 17 08/20/2016 CBC w/ auto diff WBC TNP x10e3 /uL NO SPECI MEN RECEI LJ. Not Available [facility] ([facility]) [address] [facility], [place], [address], 08/23/2016 06:05:18 08/20/19 17 08/20/2016 CBC w/ auto diff RBC TNP TEST NOT PERFO RMED Not Available [facility] ([facility]) [address] [facility] [place], [address], 08/23/2016 06:05:18 08/20/1908/20/2016 CBC w/ auto diff hemoglobin TNP TEST NOT PERFO RMED Not Available [facility] ([facility]) [address] [place], [address], 08/23/2016 06:05:18 08/20/1908/20/2016 CBC w/ auto diff hematocrit TNP TEST NOT PERFO RMED Not Available [facility] ([facility]) [address] [place], [address], 08/23/2016 06:05:18 08/20/1908/20/2016 CBC w/ auto diff [facility] ROOM CLEANER Not Available [facility] ([facility]) [address] [place], [address], 08/23/2016 06:05:18 08/20/1908/20/2016 CBC w/ auto diff MCH ROOM CLEANER Not Available [facility] ([facility]) [address] [facility] [place], [address], 08/23/2016 06:05:18 08/20/1908/20/2016 CBC w/ auto diff MCHC ROOM CLEANER Not Available [facility] ([facility]) [address] [place], [address], 08/23/2016 06:05:18 08/20/19 17 08/20/2016 CBC w/ auto diff RDW ROOM CLEANER Not Available [facility] ([facility]) [address] [facility], [place], [address], 08/23/2016 06:05:18 08/20/19 17 08/20/2016 CBC w/ auto diff platelets TNP TEST NOT PERFO RMED Not Available [facility] ([facility]) [address] [facility], [place], [address], 08/23/2016 06:05:18 08/20/19 17 08/20/2016 CBC w/ auto diff neutrophils TNP TEST NOT PERFO RMED Not Available [facility] ([facility]) [address] [facility], [place], [address], 08/23/2016 06:05:18 08/20/19 17 08/20/2016 CBC w/ auto diff lymphs TNP TEST NOT PERFO RMED Not Available [facility] ([facility]) [address] [facility], [place], [address], 08/23/2016 06:05:18 08/20/1908/20/2016 CBC w/ auto diff monocytes TNP TEST NOT PERFO RMED Not Available [facility] ([facility]) [address] [facility], [place], [address], 08/23/2016 06:05:18 08/20/19 17 08/20/2016 CBC w/ auto diff eos TNP TEST NOT PERFO RMED Not Available [facility] ([facility]) [address] [facility], [place], [address], 08/23/2016 06:05:18 08/20/19 17 08/20/2016 CBC w/ auto diff basos ROOM CLEANER Not Available [facility] ([facility]) [address] [facility], [place], [address], 08/23/2016 06:05:18 08/20/19 17 08/20/2016 CBC w/ auto diff immature cells ROOM CLEANER Not Available [facility] ([facility]) [address] [place], [address], 08/23/2016 06:05:18 08/20/19 17 08/20/2016 CBC w/ auto diff neutrophils (absolute) ROOM CLEANER Not Available [facility] ([facility]) [address] [place], [address], 08/23/2016 06:05:18 08/20/19 17 08/20/2016 CBC w/ auto diff lymphs (absolute) TNP TEST NOT PERFO RMED Not Available [facility] ([facility]) [address] [place], [address], 08/23/2016 06:05:18 08/20/19 17 08/20/2016 CBC w/ auto diff monocytes(ab solute) ROOM CLEANER Not Available [facility] ([facility]) [address] [place], [address], 08/23/2016 06:05:18 08/20/19 17 08/20/2016 CBC w/ auto diff eos (absolute) TNP TEST NOT PERFO RMED Not Available [facility] ([facility]) [address] [place], [address], 08/23/2016 06:05:18 08/20/19 17 08/20/2016 CBC w/ auto diff baso (absolute) TNP TEST NOT PERFO RMED Not Available [facility] ([facility]) [address] [place], [address], 08/23/2016 06:05:18 08/20/19 17 08/20/2016 CBC w/ auto diff immature granulocytes ROOM CLEANER Not Available [facility] ([facility]) [address] [place], [address], 08/23/2016 06:05:18 08/20/19 17 08/20/2016 CBC w/ auto diff immature grans (abs) ROOM CLEANER Not Available [facility] ([facility]) [address] [place], [address], 08/23/2016 06:05:18 08/20/19 17 08/20/2016 CBC w/ auto diff NRBC ROOM CLEANER Not Available [facility] ([facility]) [address] [place], [address], 08/23/2016 06:05:18 08/20/19 17 08/20/2016 CBC w/ auto diff hematology comments: ROOM CLEANER Not Available [facility] ([facility]) [address] [facility], [place], [address], 08/23/2016 06:05:18 08/20/1908/20/2016 hepat itis panel (A+B+ C), acute , serum hep A Ab, IgM TNP NO SPECI MEN RECEI LJ. Not Available [facility] ([facility]) [address] [facility] [place], [address], 08/23/2016 06:05:18 08/20/19 17 08/20/2016 hepat itis panel (A+B+ C), acute , serum HBsAg screen TNP TEST NOT PERFO RMED Not Available [facility] ([facility]) [address] [facility] [place], [address], 08/23/2016 06:05:18 08/20/19 17 08/20/2016 hepat itis panel (A+B+ C), acute , serum hep B core Ab, IgM TNP TEST NOT PERFO RMED Not Available [facility] ([facility]) [address] [facility] [place], [address], 08/23/2016 06:05:18 08/20/1908/20/2016 hepat itis panel (A+B+ C), acute , serum hep C virus Ab TNP TEST NOT PERFO RMED Not Available [facility] ([facility]) [address] [facility] [place], [address], 08/23/2016 06:05:18 08/20/19 17 08/20/2016 FSH (foll icle- stimu latin g hormo ne), serum FSH TNP mIU/m L NO SPECI MEN RECEI LJ. ADULT FEMAL E: FOLLI CULAR PHASE 3.5 - 12.5 OVULA TION PHASE 4.7 - 21.5 LUTEA L PHASE 1.7 - 7.7 POSTM ENOPA USAL 25.8 - 134.8 Not Available [facility] ([facility]) [address] [place], [address], 08/23/2016 06:05:19 08/20/19 17 08/20/2016 prola ctin, serum prolactin TNP NG/mL NO SPECI MEN RECEI LJ. Not Available [facility] ([facility]) [address] [place], [address], 08/23/2016 06:05:19 08/20/19 17 08/20/2016 estra diol, serum estradiol TNP pg/mL NO SPECI MEN RECEI LJ. ADULT FEMAL E: FOLLI CULAR PHASE 12.5 - 166.0 OVULA TION PHASE 85.8 - 498.0 LUTEA L PHASE 43.8 - 211.0 POSTM ENOPA USAL <6.0 - 54.7 PREGN CAREY 1ST TRIME STER 215.0 - >4300 .0 GIRLS (1-10 YEARS ) 6.0 - 27.0 SOHAM ECLIA METHO DOLOG Y Not Available [facility] ([facility]) [address] [place], [address], 08/23/2016 06:05:20 08/20/19 17 08/20/2016 hepat itis B surfa ce Ab, quali tativ e, serum hep B surface Ab, qual TNP NO SPECI MEN RECEI LJ. NON REACT RAGHAVENDRA: INCON SISTE NT WITH IMMUN ITY, LESS THAN 10 MIU/M L REACT RAGHAVENDRA: CONSI STENT WITH IMMUN ITY, GREAT ER THAN 9.9 MIU/M L Not Available [facility] ([facility]) [address] [place], [address], 08/23/2016 06:05:20 08/20/19 17 08/20/2016 RPR (rapi d plasm a reagi n), serum RPR TNP NO SPECI MEN RECEI LJ. Not Available [facility] ([facility]) [address] [facility], [place], [address], 08/23/2016 06:05:20 08/20/19 17 08/20/2016 HIV 1+2 AB + HIV 1 p24 Ag, quali tativ e immun oassa y, serum HIV screen 4TH generation wrfx TNP NO SPECI MEN RECEI LJ. Not Available [facility] ([facility]) [address] [facility], [place], [address], 08/23/2016 06:05:21 08/20/19 17 08/20/2016 hsv-2 (herp es simpl ex virus type 2) igg Ab, serum hsv 2 IgG, type spec TNP index NO SPECI MEN RECEI LJ. NEGAT RAGHAVENDRA <0.91 EQUIV OCAL 0.91 - 1.09 POSIT RAGHAVENDRA >1.09 NOTE: NEGAT RAGHAVENDRA INDIC ATES NO ANTIB ODIES DETEC MAIA TO HSV-2 . EQUIV OCAL MAY SUGGE ST EARLY INFEC TION. IF CLINI LUCIO APPRO PRIAT E, RETES T AT LATER DATE. POSIT RAGHAVENDRA INDIC ATES ANTIB ODIES DETEC MAIA TO HSV-2 . Not Available [facility] ([facility]) [address] [facility], [place], [address], 08/23/2016 06:05:21 08/20/19 17 08/20/2016 speci men statu s repor t specimen status report TNP NO SPECI MEN RECEI LJ. TEST: 40671 6 TSH+F REE T4 24641 9 CBC WITH DIFFE RENTI AL/[place] T [address] 4 HEPAT ITIS PANEL (4) 18198 9 FSH, SERUM 04989 5 PROLA CTIN 74674 5 ESTRA DIOL 03[address] 5 [place] [address] 5 RPR, RFX QN RPR/[place] [address] 5 PANEL 40836 5 37194 7 HSV TYPE 2-SPE CIFIC AB, IGG Not Available [facility] ([facility]) [address] [place], [address], 08/23/2016 06:05:22 08/20/19 17 08/23/2016 pap, IG + HPV, cervi sae diagnosis: FAUSTO MABRY FOR INTRA EPITH ELIAL LESIO N AND DAKOTA SCHUSTER . Not Available [facility] ([facility]) [address] [facility], [place], [address], 08/23/2016 08:40:48 08/20/1908/23/2016 pap, IG + HPV, cervi sae specimen adequacy: FAUSTO Batista SATIS FACTO LAZARA FOR EVALU ATION . ENDOC ERVIC AL AND/O R SQUAM OUS METAP LASTI C CELLS (ENDO CERVI SAE COMPO NENT) ARE PRESE NT. Not Available [facility] ([facility]) [address] [facility], [place], [address], 08/23/2016 08:40:48 08/20/1908/23/2016 pap, IG + HPV, cervi sae clinician provided ICD10: FAUSTO Batista N93.8 Z01.4 19 Z11.3 Not Available [facility] ([facility]) [address] [facility], [place], [address], 08/23/2016 08:40:48 08/20/1908/23/2016 pap, IG + HPV, cervi sae performed by: ADRIENNE FOSTER (ASCP ) Not Available [facility] ([facility]) [address] [place], [address], 08/23/2016 08:40:48 08/20/1908/23/2016 pap, IG + HPV, cervi sae . . Not Available [facility] ([facility]) [address] [place], [address], 08/23/2016 08:40:48 08/20/19 17 08/23/2016 pap, IG + HPV, cervi sae note: COMMEN T THE PAP SMEAR IS A SCREE SERA TEST DESIG EUGENIA TO AID IN THE DETEC TION OF ADDY LIGNA NT AND MALIG NANT CONDI TIONS OF THE UTERI NE CERVI X. IT IS NOT A DIAGN OSTIC PROCE DURE AND SHOUL D NOT BE USED THE SOLE MEANS OF DETEC TING CERVI SAE CANCE R. BOTH FALSE -POSI TIVE AND FALSE -NEGA TIVE REPOR TS DO OCCUR . Not Available [facility] ([facility]) [address] [place], [address], 08/23/2016 08:40:48 08/20/1908/23/2016 pap, IG + HPV, cervi sae test methodology: FAUSTO T THIS LIQUI D BASED THINP REP(R ) PAP TEST WAS SCREE EUGENIA WITH THE USE OF AN IMAGE GUIDE Kya Arredondo. Not Available [facility] ([facility]) [address] [facility], [place], [address], 08/23/2016 08:40:48 08/20/1908/23/2016 pap, IG + HPV, cervi sae HPV aptima NEGATI VE negati ve THIS TEST DETEC TS FOURT EEN HIGH- RISK HPV TYPES (16/1 8/31/ 33/35 /39/4 5/ 51/52 /56/5 8/59/ 66/68 ) WITHO UT DIFFE RENTI ATION . Not Available [facility] ([facility]) [address] [facility], [place], [address], 08/23/2016 08:40:48 01/24/20 18 01/24/2018 TSH + free T4, serum TSH 0.961 uIU/m L 0.450- 4.500 Not Available [facility] ([facility]) [address] [place], [address], 01/24/2018 06:22:43 01/24/20 18 01/24/2018 TSH + free T4, serum T4,free(dire ct) 1.06 NG/dL 0.82-1 .77 Not Available [facility] ([facility]) [address] [facility] [place], [address], 01/24/2018 06:22:43 01/24/20 18 01/24/2018 CBC w/ auto diff WBC 9.3 x10e3 /uL 3.4-10 .8 Not Available [facility] ([facility]) [address] [facility] [place], [address], 01/24/2018 06:22:43 01/24/20 18 01/24/2018 CBC w/ auto diff RBC 5.27 x10e6 /uL 3.77-5 .28 Not Available [facility] ([facility]) [address] [facility] [place], [address], 01/24/2018 06:22:43 01/24/20 18 01/24/2018 CBC w/ auto diff hemoglobin 16.6 g/dL 11.1-1 5.9 above high normal Not Available [facility] ([facility]) [address] [facility] [place], [address], 01/24/2018 06:22:43 01/24/20 18 01/24/2018 CBC w/ auto diff hematocrit 48.9 % 34.0-4 6.6 above high normal Not Available [facility] ([facility]) [address] [place], [address], 01/24/2018 06:22:43 01/24/20 18 01/24/2018 CBC w/ auto diff MCV 93 fL 79-97 Not Available [facility] ([facility]) [address] [place], [address], 01/24/2018 06:22:43 01/24/20 18 01/24/2018 CBC w/ auto diff MCH 31.5 pg 26.6-3 3.0 Not Available [facility] ([facility]) [address] [place], [address], 01/24/2018 06:22:43 01/24/20 18 01/24/2018 CBC w/ auto diff MCHC 33.9 g/dL 31.5-3 5.7 Not Available [facility] ([facility]) [address] [facility], [place], [address], 01/24/2018 06:22:43 01/24/20 18 01/24/2018 CBC w/ auto diff RDW 14.1 % 12.3-1 5.4 Not Available [facility] ([facility]) [address] [facility], [place], [address], 01/24/2018 06:22:43 01/24/20 18 01/24/2018 CBC w/ auto diff platelets 203 x10e3 /uL 150-37 9 Not Available [facility] ([facility]) [address] [facility], [place], [address], 01/24/2018 06:22:43 01/24/20 18 01/24/2018 CBC w/ auto diff neutrophils 55 % not estab. Not Available [facility] ([facility]) [address] [facility], [place], [address], 01/24/2018 06:22:43 01/24/20 18 01/24/2018 CBC w/ auto diff lymphs 34 % not estab. Not Available [facility] ([facility]) [address] [facility], [place], [address], 01/24/2018 06:22:43 01/24/20 18 01/24/2018 CBC w/ auto diff monocytes 9 % not estab. Not Available [facility] ([facility]) [address] [facility], [place], [address], 01/24/2018 06:22:43 01/24/20 18 01/24/2018 CBC w/ auto diff eos 2 % not estab. Not Available [facility] ([facility]) [address] [facility], [place], [address], 01/24/2018 06:22:43 01/24/20 18 01/24/2018 CBC w/ auto diff basos 0 % not estab. Not Available [facility] ([facility]) [address] [place], [address], 01/24/2018 06:22:43 01/24/20 18 01/24/2018 CBC w/ auto diff immature cells ROOM CLEANER Not Available [facility] ([facility]) [address] [place], [address], 01/24/2018 06:22:43 01/24/20 18 01/24/2018 CBC w/ auto diff neutrophils (absolute) 5.2 x10e3 /uL 1.4-7. 0 Not Available [facility] ([facility]) [address] [place], [address], 01/24/2018 06:22:43 01/24/20 18 01/24/2018 CBC w/ auto diff lymphs (absolute) 3.1 x10e3 /uL 0.7-3. 1 Not Available [facility] ([facility]) [address] [place], [address], 01/24/2018 06:22:43 01/24/20 18 01/24/2018 CBC w/ auto diff monocytes(ab solute) 0.8 x10e3 /uL 0.1-0. 9 Not Available [facility] ([facility]) [address] [place], [address], 01/24/2018 06:22:43 01/24/20 18 01/24/2018 CBC w/ auto diff eos (absolute) 0.2 x10e3 /uL 0.0-0. 4 Not Available [facility] ([facility]) [address] [place], [address], 01/24/2018 06:22:43 01/24/20 18 01/24/2018 CBC w/ auto diff baso (absolute) 0.0 x10e3 /uL 0.0-0. 2 Not Available [facility] ([facility]) [address] [facility] [place], [address], 01/24/2018 06:22:43 01/24/20 18 01/24/2018 CBC w/ auto diff immature granulocytes 0 % not estab. Not Available [facility] ([facility]) [address] [facility] [place], [address], 01/24/2018 06:22:43 01/24/20 18 01/24/2018 CBC w/ auto diff immature grans (abs) 0.0 x10e3 /uL 0.0-0. 1 Not Available [facility] ([facility]) [address] [facility] [place], [address], 01/24/2018 06:22:43 01/24/20 18 01/24/2018 CBC w/ auto diff NRBC ROOM CLEANER Not Available [facility] ([facility]) [address] [facility] [place], [address], 01/24/2018 06:22:43 01/24/20 18 01/24/2018 CBC w/ auto diff hematology comments: ROOM CLEANER Not Available [facility] ([facility]) [address] [facility] [place], [address], 01/24/2018 06:22:43 01/24/20 18 01/24/2018 CMP, serum or plasm a glucose 90 mg/dL 65-99 Not Available [facility] ([facility]) [address] [facility] [place], [address], 01/24/2018 06:22:44 01/24/20 18 01/24/2018 CMP, serum or plasm a BUN 12 mg/dL 6-24 Not Available [facility] ([facility]) [address] [facility] [place], [address], 01/24/2018 06:22:44 01/24/20 18 01/24/2018 CMP, serum or plasm a creatinine 0.54 mg/dL 0.57-1 .00 below low normal Not Available [facility] ([facility]) [address] [facility] [place], [address], 01/24/2018 06:22:44 01/24/20 18 01/24/2018 CMP, serum or plasm a eGFR if nonafricn AM 110 mL/mi n/1.7 3 >59 Not Available [facility] ([facility]) [address] [facility] [place], [address], 01/24/2018 06:22:44 01/24/20 18 01/24/2018 CMP, serum or plasm a eGFR if africn AM 127 mL/mi n/1.7 3 >59 Not Available [facility] ([facility]) [address] [facility] [place], [address], 01/24/2018 06:22:44 01/24/20 18 01/24/2018 CMP, serum or plasm a BUN/creatini ne ratio 22 9-23 Not Available [facility] ([facility]) [address] [facility] [place], [address], 01/24/2018 06:22:44 01/24/20 18 01/24/2018 CMP, serum or plasm a sodium 141 mmol/ L 134-14 4 Not Available [facility] ([facility]) [address] [facility] [place], [address], 01/24/2018 06:22:44 01/24/20 18 01/24/2018 CMP, serum or plasm a potassium 4.4 mmol/ L 3.5-5. 2 Not Available [facility] ([facility]) [address] [facility] [place], [address], 01/24/2018 06:22:44 01/24/20 18 01/24/2018 CMP, serum or plasm a chloride 102 mmol/ L 96-106 Not Available [facility] ([facility] [address] [facility] [place], [address], 01/24/2018 06:22:44 01/24/20 18 01/24/2018 CMP, serum or plasm a carbon dioxide, total 23 mmol/ L 20-29 Not Available [facility] ([facility]) [address] [facility] [place], [address], 01/24/2018 06:22:44 01/24/20 18 01/24/2018 CMP, serum or plasm a calcium 9.6 mg/dL 8.7-10 .2 Not Available [facility] ([facility]) [address] [facility] [place], [address], 01/24/2018 06:22:44 01/24/20 18 01/24/2018 CMP, serum or plasm a protein, total 7.0 g/dL 6.0-8. 5 Not Available [facility] ([facility]) [address] [facility] [place], [address], 01/24/2018 06:22:44 01/24/20 18 01/24/2018 CMP, serum or plasm a albumin 4.6 g/dL 3.5-5. 5 Not Available [facility] ([facility]) [address] [facility] [place], [address], 01/24/2018 06:22:44 01/24/20 18 01/24/2018 CMP, serum or plasm a globulin, total 2.4 g/dL 1.5-4. 5 Not Available [facility] ([facility]) [address] [facility] [place], [address], 01/24/2018 06:22:44 01/24/20 18 01/24/2018 CMP, serum or plasm a A/G ratio 1.9 1.2-2. 2 Not Available [facility] ([facility]) [address] [facility] [place], [address], 01/24/2018 06:22:44 01/24/20 18 01/24/2018 CMP, serum or plasm a bilirubin, total 0.3 mg/dL 0.0-1. 2 Not Available [facility] ([facility]) [address] [facility] [place], [address], 01/24/2018 06:22:44 01/24/20 18 01/24/2018 CMP, serum or plasm a alkaline phosphatase 78 IU/L 39-117 Not Available [facility] ([facility]) [address] [facility] [place], [address], 01/24/2018 06:22:44 01/24/20 18 01/24/2018 CMP, serum or plasm a AST (SGOT) 30 IU/L 0-40 Not Available [facility] ([facility]) [address] [facility] [place], [address], 01/24/2018 06:22:44 01/24/20 18 01/24/2018 CMP, serum or plasm a ALT (SGPT) 45 IU/L 0-32 above high normal Not Available [facility] ([facility]) [address] [facility] [place], [address], 01/24/2018 06:22:44 01/24/20 18 01/24/2018 lipid panel , serum cholesterol, total 181 mg/dL 100-19 9 Not Available [facility] ([facility]) [address] [facility] [place], [address], 01/24/2018 06:22:44 01/24/20 18 01/24/2018 lipid panel , serum triglyceride s 155 mg/dL 0-149 above high normal Not Available [facility] ([facility]) [address] [facility] [place], [address], 01/24/2018 06:22:44 01/24/20 18 01/24/2018 lipid panel , serum HDL cholesterol 46 mg/dL >39 Not Available [facility] ([facility]) [address] [facility] [place], [address], 01/24/2018 06:22:44 01/24/20 18 01/24/2018 lipid panel , serum VLDL cholesterol sae 31 mg/dL 5-40 Not Available [facility] ([facility]) [address] [place], [address], 01/24/2018 06:22:44 01/24/20 18 01/24/2018 lipid panel , serum LDL cholesterol calc 104 mg/dL 0-99 above high normal Not Available [facility] ([facility]) [address] [facility] [place], [address], 01/24/2018 06:22:44 01/24/20 18 01/24/2018 lipid panel , serum comment: ROOM CLEANER Not Available [facility] ([facility]) [address] [place], [address], 01/24/2018 06:22:44 01/24/20 18 01/24/2018 lipid panel , serum T. chol/HDL ratio 3.9 ratio 0.0-4. 4 T. Chol/ HDL Ratio Men Women 1/2 Avg.R isk 3.4 3.3 Avg.R isk 5.0 4.4 2X Avg.R isk 9.6 7.1 3X Avg.R isk 23.4 11.0 Not Available [facility] ([facility]) [address] [place], [address], 01/24/2018 06:22:44 01/24/20 18 01/24/2018 HbA1c (hemo globi n A1c), blood hemoglobin A1C 5.9 % 4.8-5. 6 above high normal Predi abete s: 5.7 - 6.4 Diabe eke: >6.4 Glyce chidi contr ol for adult s with diabe kee: <7.0 Not Available [facility] ([facility]) [address] [place], [address], 01/24/2018 06:22:45 01/24/20 18 01/24/2018 CK (crea laurel kinas e), total , serum creatine kinase,total 46 U/L 24-173 Not Available [facility] ([facility]) [address] [place], [address], 01/24/2018 06:22:45 04/30/19 19 04/30/2018 hepat itis C virus RNA, quant , PCR, serum or plasm a test information: Commen t The quant itati ve range of this assay is 15 IU/mL to 100 yamileth on IU/mL . Not Available [facility] ([facility]) [address] [facility], [place], [address], 05/01/2018 20:08:47 04/30/19 19 05/01/2018 hepat itis C virus RNA, quant , PCR, serum or plasm a hepatitis C quantitation HCV Not Detect ed IU/mL Not Available [facility] ([facility]) [address] [facility], [place], [address], 05/01/2018 20:08:47 04/30/19 19 05/01/2018 hepat itis C virus RNA, quant , PCR, serum or plasm a HCV log10 TNP log10 _IU/m L Unabl e to calcu late resul t since non-n umeri c resul t obtai eugenia for compo nent test. Not Available [facility] ([facility]) [address] [facility], [place], [address], 05/01/2018 20:08:47 04/30/19 19 05/01/2018 hepat itis C virus RNA, quant , PCR, serum or plasm a HCV genotype TNP Not indic ated Not Available [facility] ([facility]) [address] [facility], [place], [address], 05/01/2018 20:08:47 04/30/19 19 05/01/2018 gamma -glut amyl trans feras e (ggt) , serum GGT 36 IU/L 0-60 Not Available [facility] ([facility]) [address] [facility], [place], [address], 05/01/2018 20:08:48 03/15/19 18 03/15/2017 XR, chest , 2 view No observ ation record ed. [facility] (Imaging) [address] [place], [address], 03/30/2017 09:38:51 Result Notes None recorded. Problems Name Problem SNOMED Code Status Onset Date Resolution Date Notes Provider Name and Address Organization Details Recorded Time Screening for malignant neoplasm of colon Active 2017 Karri Joseph PA-C Attn: Jesús guerra,[address] [facility], [place], [address], [place] [facility] 8 17:41:01 Screening for malignant neoplasm of breast Active 2017 Karri Joseph PA-C Attn: Jesús g,[address] [facility], [place], [address], [place] [facility] 8 17:47:43 Low back pain 719403444 Active 2018 Karri Joseph PA-C Attn: Jesús guerra,[address] [facility], [place], [address], [place] [facility] 9 10:18:41 Liver enzymes outside reference range 487993515 Active 2018 Karri Joseph PA-C Attn: Accountemilia g,[address] [facility], [place], [address], [place] [facility] 9 10:26:05 Pain of elbow region 87528279 Active Gracie Welch MD Attn: Accountemilia g,[address] [facility] [facility], [place], [address], [place] [facility] 5 13:04:39 Essential hypertension 72014181 Active Gracie Welch MD Attn: Accountin g,[address] [facility], [place], [address], [place] [facility] 5 13:04:39 Anxiety 77719227 Active 2016 Karri Joseph PA-C Attn: Jesús g,[address] [facility], [place], [address], [place] [facility] 7 14:22:41 Tobacco user 305840137 Active 2016 Karri Joseph PA-C Attn: Jesús guerra,[address] [facility], [place], [address], [facility] - SI 7 14:25:25 Family history of Raised blood lipids 001907220 Active 2016 Karri Joseph PA-C Attn: Jesús guerra,[address] [facility], [place], [address], [facility] - SI 7 14:31:05 Obese 365034853 Active 2016 Karri Joseph PA-C Attn: Jesús guerra,[address] [facility], [place], [address], [facility] - SI 7 14:31:49 Problem Notes None recorded. Procedures Surgical History Date Name Laterality Status Provider Name and Address Organization Details Recorded Time 4 Most Recent Mammogram completed Mel Nunez MA [facility] 08/19/2016 14:14:17 3 Breast Surgery completed Naseem Rios MA [facility] 11/04/2014 12:30:43 1 Back Surgery completed Naseem Rios MA [facility] 11/04/2014 12:30:43 Imaging Results Imaging Date Name Status LastModified by Organiz ation Details LastModified Time 03/15/2017 XR, chest, 2 view completed [facility] (Imaging) [address] [place], [address], 03/30/2017 09:38:51 Procedure Notes None recorded. Medical Equipment None Reported. Allergies No known drug allergies Medications Name Sig Start Date Stop Date Status Note LastModified by Organization Details LastModified Time amitriptyli n tab 25mg active Not Available Not Available N ot Available lisinopril tab 20mg active Not Available Not Available Not Available losartan 50 mg tablet Take 1 tablet every day by oral route for 30 days. active Not Available Not Available No t Available buspirone 5 mg tablet Take 1 tablet twice a day by oral route after meals for 30 days. 04/30 completed Not Available Not Available Not Available nicotine 14 mg/24 hr daily transdermal patch Apply 1 patch every day by transderm al route for 30 days. active Not Available Not Available No t Available citalopram 10 mg tablet Take 1 tablet every day by oral route in the evening for 30 days. active Not Available Not Available No t Available lisinopril 20 mg tablet Take 1 tablet every day by oral route. 2014 active Not Available Not Available Not Avai lable amlodipine 5 mg tablet Take 1 tablet every day by oral route. 2018 active Not Available Not Available Not Avai lable Flagyl 500 mg tablet Take 1 tablet every 12 hours by oral route for 7 days. 2016 active Not Available Not Available Not Avai lable methylpredn isolone 4 mg tablets in a dose pack active Not Available Not Available Not Available losartan 100 mg tablet Take 1 tablet every day by oral route. 2018 active Not Available Not Available Not Avai lable naproxen 500 mg tablet Take 1 tablet twice a day by oral route. 2014 active Not Available Not Available Not Avai lable Vitals Date Recorded Body height Body mass index (BMI) Body weight Oxygen saturation Oxygen saturation in Arterial blood by Pulse oximetry Heart rate Body temperature Systolic blood pressure Diastolic blood pressure Provider Name and Address Organization Details Last Updated DateTime 8 165.1 cm 36 kg/m2 09402.3 9 g 98 % 98 % 78 /min 78 [degF] 168 mm[Hg] 92 mm[Hg] Michelle Santillan [place] [facility] 8 17:26:24 Date Recorded Body height Body mass index (BMI) Body weight Oxygen saturation Oxygen saturation in Arterial blood by Pulse oximetry Heart rate Body temperature Systolic blood pressure Diastolic blood pressure Provider Name and Address Organization Details Last Updated DateTime 9 165.1 cm 36.1 kg/m2 48401.8 3 g 96 % 96 % 88 /min 98 [degF] 148 mm[Hg] 78 mm[Hg] Michelle Santillan MA [place] [facility] 9 10:00:55 Date Recorded Heart rate Body mass index (BMI) Body height Body weight Body temperature Systolic blood pressure Diastolic blood pressure Provider Name and Address Organization Details Last Updated DateTime 6 74 /min 32.4 kg/m2 165.1 cm 90235.5 1215 g 97.9 [degF] 148 mm[Hg] 98 mm[Hg] Marya Myles MA [facility] 6 15:14:52 Date Recorded Body height Body weight Body mass index (BMI) Oxygen saturation Oxygen saturation in Arterial blood by Pulse oximetry Heart rate Body temperature Systolic blood pressure Diastolic blood pressure Provider Name and Address Organization Details Last Updated DateTime 7 165.1 cm 72686.8 4 g 34.2 kg/m2 96 % 96 % 91 /min 98.6 [degF] 160 mm[Hg] 90 mm[Hg] Jodarrin Driscoll MA [facility] 7 14:19:00 Date Recorded Body height Body weight Body mass index (BMI) Systolic blood pressure Diastolic blood pressure Provider Name and Address Organization Details Last Updated DateTime 08/19/2016 165.1 cm 40317.25 g 33.8 kg/m2 152 mm[Hg] 100 mm[Hg] Mel Nunez MA [facility] 7 14:10:45 Social History Question Answer Notes LastModified by Organization Details LastModified Time Tobacco Smoking Status Current Every Day Smoker Naseem Rios MA [facility], [facility] 11/04/2014 12:30:43 Do You Have An Advance Directive? No Information not available 08/19/2016 Is Blood Transfusion Acceptable In An Emergency? Yes Information not available 08/19/2016 What Is Your Level Of Caffeine Consumption? Moderate 1 Monster/day Information not available 08/19/2016 How Much Tobacco Do You Chew? None Information not available 08/19/2016 What Type Of Diet Are You Following? CARBOHYDRATE Low Carbs Information not available 08/19/2016 Which Illicit Or Recreational Drugs Have You Used? Marijuana Occasionally Information not available 08/19/2016 Education 2 Year College Informatio n not available 08/19/2016 Live Alone Or With Others? With Others Information not available 08/19/2016 What Was The Date Of Your Most Recent Tobacco Screening? 04/30/2018 Information not available 10/04/2018 How Many Children Do You Have? 2 Information not available 08/19/2016 Performs Monthly Self-breast Exam? Yes Information not available 08/19/2016 Do You Use Protection During Sex? No Information not available 08/19/2016 What Is Your Relationship Status? Single Information not available 08/19/2016 Seat Belts Used Routinely Yes Information not available 08/19/2016 Are You Sexually Active? No Information not available 08/19/2016 At What Age Did You Start Smoking Tobacco? 18 Information not available 08/19/2016 How Much Tobacco Do You Smoke? 0.5 PPD Information not available 08/19/2016 General Stress Level Low Information not available 08/19/2016 Do You Use Sunscreen Routinely? Yes Information not available 08/19/2016 How Many Years Have You Smoked Tobacco? 30 [email or web address] Information not available 11/04/2014 Sex: Unknown Functional Status Question Answer Note LastModified by Organizat ion Details LastModified Time What is your level of alcohol consumption? Occasional Information not available 08/19/2016 Are you currently employed? 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 Moderate Information not available 08/19/2016 Mental Status None recorded. Family History Relationship Description Onset Age of this Age Resolved Age Notes LastModified by Organization Details LastModified Time Mother Asthma Note: Mother didn't have asthma sd-ma [email or web address] Not available 08/19/2016 14:18:26 Mother Depressive disorder [email or web address] Not available 10/12 12:30:43 Mother Hypertensive disorder [email or web address] Not available 10/12 12:30:43 Father Harmful pattern of use of alcohol [email or web address] Not available 10/12 12:30:43 Father Hypertensive disorder [email or web address] Not available 10/12 12:30:43 Father Kidney disease [email or web address] Not available 10/12 12:30:43 Medical History Condition Response Other N High Blood Pressure Y Breast Cancer N Depression Y Blood Clots N Lung Disease N Breast Problem Y Anesthesia Complications N Headaches/Migraines Y Anxiety Disorder Y Muscle, Joint, or Bone Problems N Polyps N Infertility N Acid Reflux (GERD) N Cancer N Endometriosis N High Cholesterol Liver Disease N Thyroid Problems N Kidney or Bladder Problems N GI Problems N Acne N Eating Disorder N Anemia N Diabetes N Ovarian Cancer N Blood Transfusions N Seizures/Epilepsy N Abuse/Domestic Violence N Asthma N Hepatitis N Heart Disease N Pre-Eclampsia N Osteoporosis N Gynecological History Statement/Question Response Abnormal Pap N Flow Moderate On BCP's at Conception? N STIs/STDs N HPV Vaccine N Duration of Flow (days) 2-3 Most Recent Mammogram 03/13/2013 Age at Menarche 14 Current Control Method Tubal Ligat ion Age at First Child 21 Frequency of Cycle (Q days) 28 Sexually Active? N Menses Monthly Y Date of Last Pap Smear Sexual Problems? N LMP Definite Desired Control Method None Obstetrics History GPAL:G 3 P 0 2 1 2 Type Value Multiple Births 0 Full Term 0 Induced 0 Spontaneous 1 Premature 2 Living 2 Ectopics 0 Total 3 Past Encounters Encounter ID Performer Location Encounter Start Date Encounter Closed Date Diagnosis/Indication Diagnosis SNOMED-CT Code Diagnosis ICD10 Code Diagnosis Note [id number] Gracie Welch MD [facility] (Adult Med) [address] [place] [address] 11/04/2014 12:07:07 11/04/2014 13:04:13 Pain of elbow region 29817418 Essential hypertension 93869519 [id number] Gracie Welch MD [facility] (Adult Med) [address] [place] [address] 08/20/2015 14:38:46 08/24/2015 16:47:07 [id number] [facility] [address] [place] [address] 07/26/2016 13:46:53 07/26/2016 14:37:01 Essential hypertension 96714127 I10 Anxiety 10713982 F41.9 Tobacco user 548726693 Z 72.0 Family his tory of Raised blood lipids 687253906 Z83.49 Obese 866785901 E66.9 [id number] MD Alisa Lauren (EMPLOYEE RELATIONS MANAGER) [address] [place] [address] 08/19/2016 13:52:23 08/19/2016 17:41:34 Gynecologic examination 27488393 Z01.419 SHE SAY SHE HAS BLOOD WORK FOR LIPID PANEL AND OTHER TEST FROM PCP Dysfunctio nal uterine bleeding 80290363 N93.8 Venereal d isease screening 493226681 Z11.3 Breast lump 42323697 N63 in lower outer quadrant of both breasts Obese 900865184 E66.9 counseled about weight loss, diet and excercise Increased blood pressure 03268087 R03.0 patient c/o numbness in left arm. Advised patient to go to ER. She refused. counseled about its risks. Advised to f/u with PCP TAY. She verbalized understand ing. Menopausal flushing 1984 93299 N95.1 counseled about it. She is on citalopram . Advised patient to continue. [id number] [facility] [address] [place] [id number] 01/08/2018 16:11:15 01/09/2018 10:03:34 Screening for malignant neoplasm of colon 110054497 Z12.11 Essential hypertension 48209047 I10 Tobacco user 201721191 Z 72.0 Screening for malignant neoplasm of breast 232129443 Z12.31 Obese 804400157 E66.9 [id number] Nicolette Barrett MD [facility] (Adult Med) [address] [place] [address] 04/30/2018 09:23:32 05/01/2018 08:53:30 Essential hypertension 83839266 I10 Tobacco user 549456400 Z 72.0 Obese 452755421 E66.9 Low back pain 876390408 M54.5 Screening for malignant neoplasm of colon 245628472 Z12.11 Liver enzy mes outside reference range 964812129 R94.5 Anxiety 75385917 F41.9 Health Concerns Section Related Observation LastModified by Organization Detai ls LastModified Time None Recorded Concern Status LastModified by Organization Details LastModified Time None Recorded Advance Directives Directive N: Payers Encounter Date Sequence Insurance Name Policy Number Policy Mejía Covered Member ID Mejía Member ID Guarantor Name 08/20/2015 1 *SELF PAY* Fred Murray 08/20/2015 1 [facility] [id number] Marva Murray [id number] Marva Murray 07/26/2016 1 [facility] (MEDICAID HMO) Marva Naranjoarthy [id number] Marva Murray 08/19/2016 1 [facility] (MEDICAID HMO) Marva Murray [id number] Marva Murray 01/08/2018 1 [facility] (MEDICAID HMO) Marva Naranjoarthy [id number] Marva Murray 04/30/2018 1 [facility] PRIOR TO 2020 (MEDICAID REPLACEMENT - HMO) Marva Bravoy [id number] Marva Naranjoarthy Notes Date Note Type Note Provider Name and Address Organization Details Recorded Time 08/20/2015 text/html Pt here requesti ng antihypertensive medications. Apparently took lisinopril for one month in Oct 2014 and apparently none since. Said that the medication did not work. Advised that adequate trial was needed before deciding medication did not work . Pt said she would see someone else and slammed door behind her. Gracie Welch MD Attn: Accounting,[address] [place], [address], [place] [facility] 08/20/2015 18:09:09 08/19/2016 text/html Annual GYNReport ed bypatient.History:she say 3 months ago she had periods for 6 weeks. Heavy and she say she used 10 fully soaked pads per day. Associated with clots. Denies any pelvic pain or vaginal discharge. she say she wanted to do annual exam today Menstrual cycle:she say 3 months ago she had periods for 6 weeks. Heavy and she say she used 10 fully soaked pads per day. Associated with clots. Denies any pelvic pain or vaginal discharge. she say she wanted to do annual exam today Urinary symptoms:No hematuria; No incontinence Vulva:No genital lesion Vagina:Normal vaginal discharge Breast:No breast pain; No breast lump; No nipple discharge Current Contraception:Tubal ligation Sexual complaints:No sexual complaints; No pain during intercourse; Normal libido Menopausal Symptoms:No menopausal symptoms; Normal vaginal lubrication Psychological symptoms:Depression;A nxiety; she say she has a psychiatrist and on medications. she denies any symptoms today Preventive measures:Encourage self breast examination; Encourage regular exercise; Encourage no tobacco use; Encourage regular mammograms starting age 40; Needs to schedule mammogram; also counseled about calcium intake and advised to start over the counter calcium treatment. she say 3 months ago she had periods for 6 weeks. Heavy and she say she used 10 fully soaked pads per day. Associated with clots. She say after that she had period every month but very light.Denies any pelvic pain or vaginal discharge. she say she wanted to do annual exam today Stella Haro MD Attn: Accounting,[address] [place], [address], [facility] 08/19/2016 15:05:19 01/08/2018 text/html Hypertension F/UReported bypatient.Associated Symptoms:no dizziness; no lightheadedness; no chest pain; no shortness of breath; no palpitations; no edema Lifestyle:limiting/av oiding salt Medications:not taking medications as directed; only took Losartan for 6 weeks without any improvement back in in 2017. She has some elevated readings this last week and was advised to make an appointment. Karri Joseph PA-C Attn: Accounting,[address] [place], [address], [facility] 01/08/2018 18:08:12 04/30/2018 text/html chronic low back pain ,aggravated by lifting ... Karri Joseph PA-C Attn: Accounting,[address] [place], [address], [facility] 04/30/2018 16:51:35 OBGyn Episode Ob Episode Information Episode Created Date Number of Fetuses Patient Bloodtype Patient rh Status Prepregnancy Weight lbs Domestic Partner Domestic Partner Phone Father Name Privacy Manager Status 08/20/19 17 1 CLOSED Fetus Data First Name Last Name Admitted to NICU Weight (g) Sex Living Outcome Pediatric Complications Fetus ID Race Codes Race Delivery Type 2352.78 1704 [place] [id number] Vaginal Richard Calculation Initial Richard Date Initial Exam Date Initial Exam Provider Initial Ultrasound Date Last Menstrual Period Date Ultra Sound Weeks Gestation 0 Eighteen To Twenty Week Richard Update Ultra Sound Date Fundal Height At Umbil Quickening Date Ultra Sound Latest Weeks Gestation Final Richard Confirmed By Final Richard Confirmed Date Final Richard Date Ultra Sound Latest Days Gestation 0 0 Menstrual History Last Menstrual Date Menses Monthly On Bcp Conception Prior Menses Frequency Hcg Plus Date Menarche Onset Age Delivery Information Delivery Date Delivery Type Labor Anesthesia Weeks Gestation Incision Type Labor Labor Length Hrs Delivered By Post Complications Tubal Sterilization Discharge Date Comments 8 None 34 Discharge Information Feeding Method Contraceptive Method Maternal HG B and HCT Levels Ob Episode Information Episode Created Date Number of Fetuses Patient Bloodtype Patient rh Status Prepregnancy Weight lbs Domestic Partner Domestic Partner Phone Father Name Privacy Manager Status 08/20/19 17 1 CLOSED Fetus Data First Name Last Name Admitted to NICU Weight (g) Sex Living Outcome Pediatric Complications Fetus ID Race Codes Race Delivery Type , Spontane ous [id number] Richard Calculation Initial Richard Date Initial Exam Date Initial Exam Provider Initial Ultrasound Date Last Menstrual Period Date Ultra Sound Weeks Gestation 0 Eighteen To Twenty Week Richard Update Ultra Sound Date Fundal Height At Umbil Quickening Date Ultra Sound Latest Weeks Gestation Final Richard Confirmed By Final Richard Confirmed Date Final Richard Date Ultra Sound Latest Days Gestation 0 0 Menstrual History Last Menstrual Date Menses Monthly On Bcp Conception Prior Menses Frequency Hcg Plus Date Menarche Onset Age Delivery Information Delivery Date Delivery Type Labor Anesthesia Weeks Gestation Incision Type Labor Labor Length Hrs Delivered By Post Complications Tubal Sterilization Discharge Date Comments 0 3 No D&C Discharge Information Feeding Method Contraceptive Method Maternal HG B and HCT Levels Ob Episode Information Episode Created Date Number of Fetuses Patient Bloodtype Patient rh Status Prepregnancy Weight lbs Domestic Partner Domestic Partner Phone Father Name Privacy Manager Status 08/20/19 17 1 CLOSED Fetus Data First Name Last Name Admitted to NICU Weight (g) Sex Living Outcome Pediatric Complications Fetus ID Race Codes Race Delivery Type 2806.37 3704 F Prematur [place] [address]14 Vaginal Richard Calculation Initial Richard Date Initial Exam Date Initial Exam Provider Initial Ultrasound Date Last Menstrual Period Date Ultra Sound Weeks Gestation 0 Eighteen To Twenty Week Richard Update Ultra Sound Date Fundal Height At Umbil Quickening Date Ultra Sound Latest Weeks Gestation Final Richard Confirmed By Final Richard Confirmed Date Final Richard Date Ultra Sound Latest Days Gestation 0 0 Menstrual History Last Menstrual Date Menses Monthly On Bcp Conception Prior Menses Frequency Hcg Plus Date Menarche Onset Age Delivery Information Delivery Date Delivery Type Labor Anesthesia Weeks Gestation Incision Type Labor Labor Length Hrs Delivered By Post Complications Tubal Sterilization Discharge Date Comments 1 None 32 [facility] Discharge Information Feeding Method Contraceptive Method Maternal HG B and HCT Levels
--- OUTSIDE RECORDS SUMMARY | 2024-08-02 13:51 | XMS_ITS | CONTINUITY OF CARE DOCUMENT ---
Author Name argentina elaine Address Unknown Organization [facility] Address [address] [facility] [address] [place] [address] Phone [phone] Care Team Providers Care Criminal Psychologist Name Role Phone Lior THACKER, [facility] Unavailable [phone] JAY FRANKLIN Unavailable JAY FRANKLIN Unavailable [phone] INSURANCE PROVIDERS Payer name Policy type / Coverage type [place] red constitution party ID AETNA [facility] Medicaid [id number]
--- OUTSIDE RECORDS SUMMARY | 2024-08-02 14:06 | XMS_ITS | Continuity of Care Document ---
Author Organization [facility] Address [address] [place] [address] [address] [place] [address] Phone Care Team Providers Care Twx Operator Name Role Phone Karri Ramos Unavailable Unavailable Advance Directives Directive Yes / No Effective Date File Name No Information Encounters Encounter Description Practice Location Reason(s) For Visit Diagnoses Date Provider Providers Copied on Encounter [facility], [id number] [place] [address] [address], [place], [place], [id number], [place] tel:[phone] [facility] [place] No Information Dec-0 9-200 5 Doisy Edward. [address] [facility] [place] , [address], [place], [address], [place]. tel:[phone] Family History Family Member Type Diagnosis Age At Onset No Information Payers Payer name Insurance type Covered constitution party ID Authoriza tion(s) Medicaid [facility] [id number] Social History Type Description Quantity Date Captured [...]
--- OUTSIDE RECORDS SUMMARY | 2024-08-02 14:06 | XMS_ITS | CONTINUITY OF CARE DOCUMENT ---
Author Name argentina elaine Address Unknown Organization [facility] Address [address] [place] [address] Phone [phone] Care Team Providers Care Splitter Hand Name Role Phone Lior THACKER, [facility] Unavailable [phone] JAY FRANKLIN Unavailable [phone] JAY FRANKLIN Unavailable INSURANCE PROVIDERS Payer name Policy type / Coverage type [place] red [place] party ID AETNA [facility] Medicaid [id number]
--- NOTE | 2024-08-02 14:18 | ED_ITS ---
HPI - Psych General Chief Complaint: Psychiatric Symptoms <Jossy Mae APRN - Last Filed: 08/02/24 19:51> Stated Complaint: Suicidal thoughts <Jossy Mae APRN - Last Filed: 08/02/24 19:51> Time Seen by Provider: 08/02/24 14:01 <Jossy Mae PLANT PROTECTION OFFICER - Last Filed: 08/02/24 19:51> History of Present Illness HPI Narrative: Patient is a 58-year-old female who presents to the ER with suicidal thoughts. She reports her sister was killed in December of 2023. Patient reports she has been unable to manage her grief appropriately since then. She reports she has been drinking alcohol to numb my pain. Patient reports this morning she drank a lot! She reports I don't know what to do anymore. I can't cope. I've gone to AA and it doesn't work. Pt reports she has had suicidal ideation intermittently, but this morning her feelings became strong. She endorses a history of ?heart problems and high blood pressure. Patient also reports she is a cigarette smoker. She denies any physical symptoms of pain, recent fevers, lower extremity swelling, or cough. <Jossy Mae APRN - Last Filed: 08/02/24 19:51> Patient is a 58-year-old female who presents to the ER with suicidal thoughts. She reports her sister was killed in December of 2023. Patient reports she has been unable to manage her grief appropriately since then. She reports she has been drinking alcohol to numb my pain. Patient reports this morning she drank a lot! She reports I don't know what to do anymore. I can't cope. I've gone to AA and it doesn't work. Pt reports she has had suicidal ideation intermittently, but this morning her feelings became strong. She endorses a history of ?heart problems and high blood pressure. Patient also reports she is a cigarette smoker. She denies any physical symptoms of pain, recent fevers, lower extremity swelling, or cough. <Xochilt Rashid PA-C - Last Filed: 08/03/24 02:10> Related Data Allergies/Adverse Reactions: Allergies Allergy/AdvReac Type Severity Reaction Status Date / Time No Known Allergies Allergy Mild Verified 08/02/24 13:50 <Jossy Mae APRN - Last Filed: 08/02/24 19:51> Review of Systems 2 Review of Systems: All systems reviewed & are unremarkable except as noted in HPI and below <Jossy Mae APRN - Last Filed: 08/02/24 19:51> [facility] Past Medical History Medical History: Medical History BMI greater than 30 BMI 31.0-31.9,adult BMI 30.0-30.9,adult BMI 32.0-32.9,adult <Jossy Mae APRN - Last Filed: 08/02/24 19:51> Surgical History Surgical History: Surgical History H/O Spinal surgery <Jossy Mae APRN - Last Filed: 08/02/24 19:51> Family History Family History: Family History Father Alcoholic cirrhosis of liver Mother , C-diff C. difficile colitis Hypertension Sibling Diabetes mellitus Heart disease <Jossy Mae APRN - Last Filed: 08/02/24 19:51> Social History Social History: Social History Smoking status: Current every day smoker Tobacco type: cigarettes Second hand tobacco smoke exposure: Yes Alcohol intake: current Drinks per week: 14 Substance use: current Substance use type: does not use Do You Feel Safe in your Home?: Yes Lack of Transportation: YES Lack of Food: Never True Current Housing: I Have Housing Concerned About Future Housing: No Difficulty Paying Gas/Electric Bills: No Difficulty Paying for Meds: No Currently Unemployed: No Education: Associate Degree Difficulty w/ Childcare or Family Care: No Living arrangements: with roommate(s) Occupation/Education: occupation Additional occupation/education comments: [employer] Gender identity (if verbalized by the patient): Female Spiritual care concerns: No <Jossy Mae APRN - Last Filed: 08/02/24 19:51> Exam 2 Narrative: GENERAL: Well appearing, well-nourished, non-toxic, in no acute distress. HEAD: Normocephalic, atraumatic. NECK: Supple. No adenopathy, no masses. RESPIRATORY: Airway patent, respirations nonlabored. Clear to auscultation bilaterally, no rales, rhonchi, wheezing. CARDIOVASCULAR: Regular rate and rhythm without murmurs, rubs, or gallops. Peripheral pulses 2+ and equal bilaterally. ABDOMINAL: Soft, nontender, nondistended, no hepatosplenomegaly. Normoactive BS. MUSCULOSKELETAL: Moves all extremities. Strength/ROM intact without gross deformities. SKIN: Warm, dry, normal color. No rashes. NEURO: A&O X3. Speech clear. Cranial nerves II-XII intact. No ataxic movements. PSYCHIATRIC: Tearful. Continues to repeat self My sister was such a good woman! She didn't deserve this! I was in [place] and I was supposed to be protecting her! <Jossy Mae, ODETTE - Last Filed: 08/02/24 19:51> Course Course Emergency Course: Alcohol level 50. Patient becoming anxious, tremulous, tachycardic, hypertensive. She dose endorse history of withdrawal, including seizures. Will consult hospitalist for admission for withdrawal <Xochilt Rashid PA-C - Last Filed: 08/03/24 02:10> WASHING MACHINE ASSEMBLER/PA Physician Supervision I was notified that there was concern patient was experiencing withdrawal from alcohol while in the ED, prompting intervention/management, and admission. I was available for consultation while patient was in the emergency department but otherwise did not personally evaluate this patient was not directly involved in their care. <Marlen Fragoso MD - Last Filed: 08/05/24 18:19> Consultations Consultation #1: Spoke with hospitalist about patient and workup who accepts admission < Xochilt Rashid PA-C - Last Filed: 08/03/24 02:10> Date: 08/03/24 <Xochilt Rashid PA-C - Last Filed: 08/03/24 02:10> Consultation #2: Spoke with Dr. Reyes. Patient may go to the IMU and will receive ICU care for suicidal ideation <Xochilt Rashid PA-C - Last Filed: 08/03/24 02:10> Date: 08/03/24 <Xochilt Rashid PA-C - Last Filed: 08/03/24 02:10> Vital Signs Vital signs: Vital Signs Temperature 97.6 F 08/02/24 13:52 Pulse Rate 93 08/02/24 13:52 Respiratory Rate 18 08/02/24 13:52 Blood Pressure 143/73 H 08/02/24 13:52 Pulse Oximetry 95 08/02/24 13:52 Oxygen Delivery Room Air 08/02/24 13:52 Temperature 98.3 F 08/05/24 12:00 Pulse Rate 86 08/05/24 12:00 Respiratory Rate 12 08/05/24 12:00 Blood Pressure 149/88 H 08/05/24 12:00 Pulse Oximetry 98 08/05/24 12:00 Oxygen Delivery Room Air 08/03/24 04:00 <Jossy Mae, ODETTE - Last Filed: 08/02/24 19:51> Vital Signs Temperature 97.6 F 08/02/24 13:52 Pulse Rate 93 08/02/24 13:52 Respiratory Rate 18 08/02/24 13:52 Blood Pressure 143/73 H 08/02/24 13:52 Pulse Oximetry 95 08/02/24 13:52 Oxygen Delivery Room Air 08/02/24 13:52 Temperature 98.3 F 08/05/24 12:00 Pulse Rate 86 08/05/24 12:00 Respiratory Rate 12 08/05/24 12:00 Blood Pressure 149/88 H 08/05/24 12:00 Pulse Oximetry 98 08/05/24 12:00 Oxygen Delivery Room Air 08/03/24 04:00 <Xochilt Rashid PA-C - Last Filed: 08/03/24 02:10> Vital Signs Temperature 97.6 F 08/02/24 13:52 Pulse Rate 93 08/02/24 13:52 Respiratory Rate 18 08/02/24 13:52 Blood Pressure 143/73 H 08/02/24 13:52 Pulse Oximetry 95 08/02/24 13:52 Oxygen Delivery Room Air 08/02/24 13:52 Temperature 98.3 F 08/05/24 12:00 Pulse Rate 86 08/05/24 12:00 Respiratory Rate 12 08/05/24 12:00 Blood Pressure 149/88 H 08/05/24 12:00 Pulse Oximetry 98 08/05/24 12:00 Oxygen Delivery Room Air 08/03/24 04:00 <Marlen Fragoso MD - Last Filed: 08/05/24 18:19> MDM - Psych MDM Narrative Medical decision making narrative: Patient is a 58-year-old female who presents to the ER with suicidal thoughts. She reports her sister was killed in December of 2023. Patient reports she has been unable to manage her grief appropriately since then. She reports she has been drinking alcohol to numb my pain. Patient reports this morning she drank a lot! She reports I don't know what to do anymore. I can't cope. I've gone to AA and it doesn't work. Pt reports she has had suicidal ideation intermittently, but this morning her feelings became strong. She denies having a specific plan, but reports she has frequent thoughts of killing herself. She endorses a history of ?heart problems and high blood pressure. Patient also reports she is a cigarette smoker. She denies any physical symptoms of pain, recent fevers, lower extremity swelling, or cough. Labs Ordered: CBC, CMP, TSH, ethanol, UA, UDS Imaging Ordered: None necessary Medications Ordered: 1 L normal saline IV bolus, potassium chloride p.o. Results: Patient's CBC indicates a hemoglobin of 16.2 and hematocrit of 48.0%. Her CMP indicates a potassium of 3.3, anion gap of 17, creatinine of 0.39, AST of 66, and ALT of 69. Her UDS was positive for cannabinoids. Her ethyl alcohol level at 1430 was 263. Diagnosis: acute alcohol intoxication, suicidal ideation Patient Education/Shared MDM: Results of lab work shared with patient. Patient is requesting to leave the ER. It was explained to her that WASHING MACHINE ASSEMBLER has concerns because patient was making comments regarding suicidal ideation. She reports I was just drunk. WASHING MACHINE ASSEMBLER explained to patient that she would not be discharged home until she was evaluated by mental health intake. Intake will see patient once her blood alcohol level is lower than 80. Since blood alcohol levels drop approximately 15 per hour, patient's alcohol level will not be below 80 for at least 12 hours from her first blood alcohol draw. Patient began pleading with WASHING MACHINE ASSEMBLER to let her go home and once again reports I was just drunk. WASHING MACHINE ASSEMBLER reviewed criteria with patient again. Pt verbalized understanding. 1944- Care signed out to Xochilt Rashid PA-C. <Jossy MontalvoAndrzej Mae, PLANT PROTECTION OFFICER - Last Filed: 08/02/24 19:51> Patient is a 58-year-old female who presents to the ER with suicidal thoughts. She reports her sister was killed in December of 2023. Patient reports she has been unable to manage her grief appropriately since then. She reports she has been drinking alcohol to numb my pain. Patient reports this morning she drank a lot! She reports I don't know what to do anymore. I can't cope. I've gone to AA and it doesn't work. Pt reports she has had suicidal ideation intermittently, but this morning her feelings became strong. She denies having a specific plan, but reports she has frequent thoughts of killing herself. She endorses a history of ?heart problems and high blood pressure. Patient also reports she is a cigarette smoker. She denies any physical symptoms of pain, recent fevers, lower extremity swelling, or cough. Labs Ordered: CBC, CMP, TSH, ethanol, UA, UDS Imaging Ordered: None necessary Medications Ordered: 1 L normal saline IV bolus, potassium chloride p.o. Results: Patient's CBC indicates a hemoglobin of 16.2 and hematocrit of 48.0%. Her CMP indicates a potassium of 3.3, anion gap of 17, creatinine of 0.39, AST of 66, and ALT of 69. Her UDS was positive for cannabinoids. Her ethyl alcohol level at 1430 was 263. Diagnosis: acute alcohol intoxication, suicidal ideation Patient Education/Shared MDM: Results of lab work shared with patient. Patient is requesting to leave the ER. It was explained to her that WASHING MACHINE ASSEMBLER has concerns because patient was making comments regarding suicidal ideation. She reports I was just drunk. WASHING MACHINE ASSEMBLER explained to patient that she would not be discharged home until she was evaluated by mental health intake. Intake will see patient once her blood alcohol level is lower than 80. Since blood alcohol levels drop approximately 15 per hour, patient's alcohol level will not be below 80 for at least 12 hours from her first blood alcohol draw. Patient began pleading with WASHING MACHINE ASSEMBLER to let her go home and once again reports I was just drunk. WASHING MACHINE ASSEMBLER reviewed criteria with patient again. Pt verbalized understanding. 194- Care signed out to Xochilt Rashid PA-C. Patient's repeat alcohol is 50. She is now reporting anxiety, is tremulous, tachycardic, hypertensive. Will admit for alcohol withdrawal symptoms and further evaluation by crisis <Xochilt Rashid PA-C - Last Filed: 08/03/24 02:10> Differential Diagnosis Differential diagnosis: Likely suicidal ideation, depression and drug-induced psychotic disorder < Jossy Mae APRN - Last Filed: 08/02/24 19:51> Likely acute anxiety and other (alcohol intoxication, alcohol withdrawal) <Xochilt Rashid PA-C - Last Filed: 08/03/24 02:10> Lab Data Attestation: I reviewed the patient's lab results. <Jossy Mae APRN - Last Filed: 08/02/24 19:51> Result diagrams: 08/05/24 03:56 08/05/24 03:56 <Jossy Mae APRN - Last Filed: 08/02/24 19:51> Labs: Lab Results 08/02/24 08/02/24 08/02/24 Range/Units 14:25 14:26 15:30 WBC 7.6 (4.5-10.0) K/mm3 RBC 5.15 (4.2-5.4) M/mm3 Hgb 16.2 H (12.0-15.0) g/dL Hct 48.0 H (37.0-47.0) % MCV 93.2 (80-100) fl MCH 31.5 (26-34) pg MCHC 33.8 (32-36) g/dl RDW 15.0 H (11.5-14.5) % Plt Count 235 D (150-375) k/mm3 MPV 10.8 H (7.4-10.4) fl Immature Gran % (Auto) 0.3 (0-0.5) % Neut % (Auto) 58.1 (45.5-73.1) % Lymph % (Auto) 34.5 (18.3-44.2) % [place] % (Auto) 5.6 (2.6-8.5) % Eos % (Auto) 0.1 (0-4.4) % Baso % (Auto) 1.4 H (0.2-1.2) % Lymph # (Auto) 2.63 (0.9-3.2) K/mm3 [place] # (Auto) 0.4 (0.1-0.6) K/mm3 Eos # (Auto) 0.0 (0-0.3) K/mm3 Baso # (Auto) 0.1 (0.0-0.1) K/mm3 Abs Immat Gran (auto) 0.02 (0.00-0.031) K/mm3 Absolute Neuts (auto) 4.4 (1.3-6.7) K/mm3 Absolute Nucleated RBC 0.000 (0.0-0.012) K/mm3 Nucleated RBC % 0.0 (0.0-0.2) % Sodium 140 (137-145) mmol/L Potassium 3.3 L (3.4-5.0) mmol/L Chloride 101 (98-107) mmol/L Carbon Dioxide 22 (22-30) mmol/L Anion Gap 17 H (4-12) mmol/L BUN 11 (7-17) mg/dL Creatinine 0.39 L (0.7-1.0) mg/dL Estim Creat Clear Calc 149 ml/min Estimated GFR > 60 (59 - ) Glucose 94 (65-110) mg/dL Calcium 8.4 (8.4-10.2) mg/dL Magnesium 1.9 (1.6-2.3) mg/dL Total Bilirubin 0.7 (0.2-1.3) mg/dL AST 66 H (14-36) U/L ALT 69 H (6-35) U/L Alkaline Phosphatase 103 (38-126) U/L Total Protein 8.0 (6.3-8.2) g/dL Albumin 4.6 (3.5-5.1) g/dL TSH 0.509 (0.465-4.680) uIU/mL Urine Color Yellow (Yellow) Urine Appearance Clear (Clear) Urine pH 5.5 (5.0-9.0) Ur Specific [place] 1.019 (1.001-1.035) Urine Protein Trace (Negative) mg/dL Urine Glucose (UA) Negative (Negative) mg/dL Urine Ketones 3+ H (Negative) mg/dL Ur Blood (Man) 1+ H (Negative) Urine Nitrate Negative (Negative) Urine Bilirubin Negative (Negative) Urine Urobilinogen 1.0 (<2.0) mg/dL Leukocyte Esterase Rfl Negative (Negative) ANIYA/UL Urine RBC 3-5 H (0-2) /hpf Urine WBC 0-5 (0-3) /hpf Ur Squamous Epith Cells Few (Few) /hpf Urine Bacteria Rare /hpf Urine Casts 0-2 Urine Opiates Screen Negative (Negative) Urine Methadone Screen Negative (Negative) Ur Barbiturates Screen Negative (Negative) Ur Phencyclidine Scrn Negative (Negative) Ur Amphetamine Screen Negative (Negative) U Benzodiazepines Scrn Negative (Negative) Urine Cocaine Screen Negative (Negative) U Cannabinoids Screen Positive A (Negative) Ethyl Alcohol 263 (<10) mg/dL 08/03/24 Range/Units 00:43 WBC (4.5-10.0) K/mm3 RBC (4.2-5.4) M/mm3 Hgb (12.0-15.0) g/dL Hct (37.0-47.0) % MCV (80-100) fl MCH (26-34) pg MCHC (32-36) g/dl RDW (11.5-14.5) % Plt Count (150-375) k/mm3 MPV (7.4-10.4) fl Immature Gran % (Auto) (0-0.5) % Neut % (Auto) (45.5-73.1) % Lymph % (Auto) (18.3-44.2) % [place] % (Auto) (2.6-8.5) % Eos % (Auto) (0-4.4) % Baso % (Auto) (0.2-1.2) % Lymph # (Auto) (0.9-3.2) K/mm3 [place] # (Auto) (0.1-0.6) K/mm3 Eos # (Auto) (0-0.3) K/mm3 Baso # (Auto) (0.0-0.1) K/mm3 Abs Immat Gran (auto) (0.00-0.031) K/mm3 Absolute Neuts (auto) (1.3-6.7) K/mm3 Absolute Nucleated RBC (0.0-0.012) K/mm3 Nucleated RBC % (0.0-0.2) % Sodium (137-145) mmol/L Potassium (3.4-5.0) mmol/L Chloride (98-107) mmol/L Carbon Dioxide (22-30) mmol/L Anion Gap (4-12) mmol/L BUN (7-17) mg/dL Creatinine (0.7-1.0) mg/dL Estim Creat Clear Calc ml/min Estimated GFR (59 - ) Glucose (65-110) mg/dL Calcium (8.4-10.2) mg/dL Magnesium (1.6-2.3) mg/dL Total Bilirubin (0.2-1.3) mg/dL AST (14-36) U/L ALT (6-35) U/L Alkaline Phosphatase (38-126) U/L Total Protein (6.3-8.2) g/dL Albumin (3.5-5.1) g/dL TSH (0.465-4.680) uIU/mL Urine Color (Yellow) Urine Appearance (Clear) Urine pH (5.0-9.0) Ur Specific [place] (1.001-1.035) Urine Protein (Negative) mg/dL Urine Glucose (UA) (Negative) mg/dL Urine Ketones (Negative) mg/dL Ur Blood (Man) (Negative) Urine Nitrate (Negative) Urine Bilirubin (Negative) Urine Urobilinogen (<2.0) mg/dL Leukocyte Esterase Rfl (Negative) ANIYA/UL Urine RBC (0-2) /hpf Urine WBC (0-3) /hpf Ur Squamous Epith Cells (Few) /hpf Urine Bacteria /hpf Urine Casts Urine Opiates Screen (Negative) Urine Methadone Screen (Negative) Ur Barbiturates Screen (Negative) Ur Phencyclidine Scrn (Negative) Ur Amphetamine Screen (Negative) U Benzodiazepines Scrn (Negative) Urine Cocaine Screen (Negative) U Cannabinoids Screen (Negative) Ethyl Alcohol 50 (<10) mg/dL <Jossy Mae, PLANT PROTECTION OFFICER - Last Filed: 08/02/24 19:51> Lab Results 08/02/24 08/02/24 08/02/24 Range/Units 14:25 14:26 15:30 WBC 7.6 (4.5-10.0) K/mm3 RBC 5.15 (4.2-5.4) M/mm3 Hgb 16.2 H (12.0-15.0) g/dL Hct 48.0 H (37.0-47.0) % MCV 93.2 (80-100) fl MCH 31.5 (26-34) pg MCHC 33.8 (32-36) g/dl RDW 15.0 H (11.5-14.5) % Plt Count 235 D (150-375) k/mm3 MPV 10.8 H (7.4-10.4) fl Immature Gran % (Auto) 0.3 (0-0.5) % Neut % (Auto) 58.1 (45.5-73.1) % Lymph % (Auto) 34.5 (18.3-44.2) % [place] % (Auto) 5.6 (2.6-8.5) % Eos % (Auto) 0.1 (0-4.4) % Baso % (Auto) 1.4 H (0.2-1.2) % Lymph # (Auto) 2.63 (0.9-3.2) K/mm3 [place] # (Auto) 0.4 (0.1-0.6) K/mm3 Eos # (Auto) 0.0 (0-0.3) K/mm3 Baso # (Auto) 0.1 (0.0-0.1) K/mm3 Abs Immat Gran (auto) 0.02 (0.00-0.031) K/mm3 Absolute Neuts (auto) 4.4 (1.3-6.7) K/mm3 Absolute Nucleated RBC 0.000 (0.0-0.012) K/mm3 Nucleated RBC % 0.0 (0.0-0.2) % Sodium 140 (137-145) mmol/L Potassium 3.3 L (3.4-5.0) mmol/L Chloride 101 (98-107) mmol/L Carbon Dioxide 22 (22-30) mmol/L Anion Gap 17 H (4-12) mmol/L BUN 11 (7-17) mg/dL Creatinine 0.39 L (0.7-1.0) mg/dL Estim Creat Clear Calc 149 ml/min Estimated GFR > 60 (59 - ) Glucose 94 (65-110) mg/dL Calcium 8.4 (8.4-10.2) mg/dL Magnesium 1.9 (1.6-2.3) mg/dL Total Bilirubin 0.7 (0.2-1.3) mg/dL AST 66 H (14-36) U/L ALT 69 H (6-35) U/L Alkaline Phosphatase 103 (38-126) U/L Total Protein 8.0 (6.3-8.2) g/dL Albumin 4.6 (3.5-5.1) g/dL TSH 0.509 (0.465-4.680) uIU/mL Urine Color Yellow (Yellow) Urine Appearance Clear (Clear) Urine pH 5.5 (5.0-9.0) Ur Specific [place] 1.019 (1.001-1.035) Urine Protein Trace (Negative) mg/dL Urine Glucose (UA) Negative (Negative) mg/dL Urine Ketones 3+ H (Negative) mg/dL Ur Blood (Man) 1+ H (Negative) Urine Nitrate Negative (Negative) Urine Bilirubin Negative (Negative) Urine Urobilinogen 1.0 (<2.0) mg/dL Leukocyte Esterase Rfl Negative (Negative) ANIYA/UL Urine RBC 3-5 H (0-2) /hpf Urine WBC 0-5 (0-3) /hpf Ur Squamous Epith Cells Few (Few) /hpf Urine Bacteria Rare /hpf Urine Casts 0-2 Urine Opiates Screen Negative (Negative) Urine Methadone Screen Negative (Negative) Ur Barbiturates Screen Negative (Negative) Ur Phencyclidine Scrn Negative (Negative) Ur Amphetamine Screen Negative (Negative) U Benzodiazepines Scrn Negative (Negative) Urine Cocaine Screen Negative (Negative) U Cannabinoids Screen Positive A (Negative) Ethyl Alcohol 263 (<10) mg/dL /24/25 Range/Units 00:43 WBC (4.5-10.0) K/mm3 RBC (4.2-5.4) M/mm3 Hgb (12.0-15.0) g/dL Hct (37.0-47.0) % MCV (80-100) fl MCH (26-34) pg MCHC (32-36) g/dl RDW (11.5-14.5) % Plt Count (150-375) k/mm3 MPV (7.4-10.4) fl Immature Gran % (Auto) (0-0.5) % Neut % (Auto) (45.5-73.1) % Lymph % (Auto) (18.3-44.2) % [place] % (Auto) (2.6-8.5) % Eos % (Auto) (0-4.4) % Baso % (Auto) (0.2-1.2) % Lymph # (Auto) (0.9-3.2) K/mm3 [place] # (Auto) (0.1-0.6) K/mm3 Eos # (Auto) (0-0.3) K/mm3 Baso # (Auto) (0.0-0.1) K/mm3 Abs Immat Gran (auto) (0.00-0.031) K/mm3 Absolute Neuts (auto) (1.3-6.7) K/mm3 Absolute Nucleated RBC (0.0-0.012) K/mm3 Nucleated RBC % (0.0-0.2) % Sodium (137-145) mmol/L Potassium (3.4-5.0) mmol/L Chloride (98-107) mmol/L Carbon Dioxide (22-30) mmol/L Anion Gap (4-12) mmol/L BUN (7-17) mg/dL Creatinine (0.7-1.0) mg/dL Estim Creat Clear Calc ml/min Estimated GFR (59 - ) Glucose (65-110) mg/dL Calcium (8.4-10.2) mg/dL Magnesium (1.6-2.3) mg/dL Total Bilirubin (0.2-1.3) mg/dL AST (14-36) U/L ALT (6-35) U/L Alkaline Phosphatase (38-126) U/L Total Protein (6.3-8.2) g/dL Albumin (3.5-5.1) g/dL TSH (0.465-4.680) uIU/mL Urine Color (Yellow) Urine Appearance (Clear) Urine pH (5.0-9.0) Ur Specific [place] (1.001-1.035) Urine Protein (Negative) mg/dL Urine Glucose (UA) (Negative) mg/dL Urine Ketones (Negative) mg/dL Ur Blood (Man) (Negative) Urine Nitrate (Negative) Urine Bilirubin (Negative) Urine Urobilinogen (<2.0) mg/dL Leukocyte Esterase Rfl (Negative) ANIYA/UL Urine RBC (0-2) /hpf Urine WBC (0-3) /hpf Ur Squamous Epith Cells (Few) /hpf Urine Bacteria /hpf Urine Casts Urine Opiates Screen (Negative) Urine Methadone Screen (Negative) Ur Barbiturates Screen (Negative) Ur Phencyclidine Scrn (Negative) Ur Amphetamine Screen (Negative) U Benzodiazepines Scrn (Negative) Urine Cocaine Screen (Negative) U Cannabinoids Screen (Negative) Ethyl Alcohol 50 (<10) mg/dL <Xochilt Rashid PA-C - Last Filed: 08/03/24 02:10> Lab Results 08/02/24 08/02/24 08/02/24 Range/Units 14:25 14:26 15:30 WBC 7.6 (4.5-10.0) K/mm3 RBC 5.15 (4.2-5.4) M/mm3 Hgb 16.2 H (12.0-15.0) g/dL Hct 48.0 H (37.0-47.0) % MCV 93.2 (80-100) fl MCH 31.5 (26-34) pg MCHC 33.8 (32-36) g/dl RDW 15.0 H (11.5-14.5) % Plt Count 235 D (150-375) k/mm3 MPV 10.8 H (7.4-10.4) fl Immature Gran % (Auto) 0.3 (0-0.5) % Neut % (Auto) 58.1 (45.5-73.1) % Lymph % (Auto) 34.5 (18.3-44.2) % [place] % (Auto) 5.6 (2.6-8.5) % Eos % (Auto) 0.1 (0-4.4) % Baso % (Auto) 1.4 H (0.2-1.2) % Lymph # (Auto) 2.63 (0.9-3.2) K/mm3 [place] # (Auto) 0.4 (0.1-0.6) K/mm3 Eos # (Auto) 0.0 (0-0.3) K/mm3 Baso # (Auto) 0.1 (0.0-0.1) K/mm3 Abs Immat Gran (auto) 0.02 (0.00-0.031) K/mm3 Absolute Neuts (auto) 4.4 (1.3-6.7) K/mm3 Absolute Nucleated RBC 0.000 (0.0-0.012) K/mm3 Nucleated RBC % 0.0 (0.0-0.2) % Sodium 140 (137-145) mmol/L Potassium 3.3 L (3.4-5.0) mmol/L Chloride 101 (98-107) mmol/L Carbon Dioxide 22 (22-30) mmol/L Anion Gap 17 H (4-12) mmol/L BUN 11 (7-17) mg/dL Creatinine 0.39 L (0.7-1.0) mg/dL Estim Creat Clear Calc 149 ml/min Estimated GFR > 60 (59 - ) Glucose 94 (65-110) mg/dL Calcium 8.4 (8.4-10.2) mg/dL Magnesium 1.9 (1.6-2.3) mg/dL Total Bilirubin 0.7 (0.2-1.3) mg/dL AST 66 H (14-36) U/L ALT 69 H (6-35) U/L Alkaline Phosphatase 103 (38-126) U/L Total Protein 8.0 (6.3-8.2) g/dL Albumin 4.6 (3.5-5.1) g/dL TSH 0.509 (0.465-4.680) uIU/mL Urine Color Yellow (Yellow) Urine Appearance Clear (Clear) Urine pH 5.5 (5.0-9.0) Ur Specific [place] 1.019 (1.001-1.035) Urine Protein Trace (Negative) mg/dL Urine Glucose (UA) Negative (Negative) mg/dL Urine Ketones 3+ H (Negative) mg/dL Ur Blood (Man) 1+ H (Negative) Urine Nitrate Negative (Negative) Urine Bilirubin Negative (Negative) Urine Urobilinogen 1.0 (<2.0) mg/dL Leukocyte Esterase Rfl Negative (Negative) ANIYA/UL Urine RBC 3-5 H (0-2) /hpf Urine WBC 0-5 (0-3) /hpf Ur Squamous Epith Cells Few (Few) /hpf Urine Bacteria Rare /hpf Urine Casts 0-2 Urine Opiates Screen Negative (Negative) Urine Methadone Screen Negative (Negative) Ur Barbiturates Screen Negative (Negative) Ur Phencyclidine Scrn Negative (Negative) Ur Amphetamine Screen Negative (Negative) U Benzodiazepines Scrn Negative (Negative) Urine Cocaine Screen Negative (Negative) U Cannabinoids Screen Positive A (Negative) Ethyl Alcohol 263 (<10) mg/dL 08/03/24 Range/Units 00:43 WBC (4.5-10.0) K/mm3 RBC (4.2-5.4) M/mm3 Hgb (12.0-15.0) g/dL Hct (37.0-47.0) % MCV (80-100) fl MCH (26-34) pg MCHC (32-36) g/dl RDW (11.5-14.5) % Plt Count (150-375) k/mm3 MPV (7.4-10.4) fl Immature Gran % (Auto) (0-0.5) % Neut % (Auto) (45.5-73.1) % Lymph % (Auto) (18.3-44.2) % [place] % (Auto) (2.6-8.5) % Eos % (Auto) (0-4.4) % Baso % (Auto) (0.2-1.2) % Lymph # (Auto) (0.9-3.2) K/mm3 [place] # (Auto) (0.1-0.6) K/mm3 Eos # (Auto) (0-0.3) K/mm3 Baso # (Auto) (0.0-0.1) K/mm3 Abs Immat Gran (auto) (0.00-0.031) K/mm3 Absolute Neuts (auto) (1.3-6.7) K/mm3 Absolute Nucleated RBC (0.0-0.012) K/mm3 Nucleated RBC % (0.0-0.2) % Sodium (137-145) mmol/L Potassium (3.4-5.0) mmol/L Chloride (98-107) mmol/L Carbon Dioxide (22-30) mmol/L Anion Gap (4-12) mmol/L BUN (7-17) mg/dL Creatinine (0.7-1.0) mg/dL Estim Creat Clear Calc ml/min Estimated GFR (59 - ) Glucose (65-110) mg/dL Calcium (8.4-10.2) mg/dL Magnesium (1.6-2.3) mg/dL Total Bilirubin (0.2-1.3) mg/dL AST (14-36) U/L ALT (6-35) U/L Alkaline Phosphatase (38-126) U/L Total Protein (6.3-8.2) g/dL Albumin (3.5-5.1) g/dL TSH (0.465-4.680) uIU/mL Urine Color (Yellow) Urine Appearance (Clear) Urine pH (5.0-9.0) Ur Specific [place] (1.001-1.035) Urine Protein (Negative) mg/dL Urine Glucose (UA) (Negative) mg/dL Urine Ketones (Negative) mg/dL Ur Blood (Man) (Negative) Urine Nitrate (Negative) Urine Bilirubin (Negative) Urine Urobilinogen (<2.0) mg/dL Leukocyte Esterase Rfl (Negative) ANIYA/UL Urine RBC (0-2) /hpf Urine WBC (0-3) /hpf Ur Squamous Epith Cells (Few) /hpf Urine Bacteria /hpf Urine Casts Urine Opiates Screen (Negative) Urine Methadone Screen (Negative) Ur Barbiturates Screen (Negative) Ur Phencyclidine Scrn (Negative) Ur Amphetamine Screen (Negative) U Benzodiazepines Scrn (Negative) Urine Cocaine Screen (Negative) U Cannabinoids Screen (Negative) Ethyl Alcohol 50 (<10) mg/dL <Marlen Fragoso MD - Last Filed: 08/05/24 18:19> Critical Care Time Critical Care Time Critical Care Time: No <Xochilt Rashid PA-C - Last Filed: 08/03/24 02:10> Discharge Plan Discharge Clinical Impression: Suicidal ideation Alcohol withdrawal Qualifiers: Complication of substance-induced condition: uncomplicated Qualified Code(s): F 10.930 - Alcohol use, unspecified with withdrawal, uncomplicated <Jossy Mae APRN - Last Filed: 08/02/24 19:51> Patient Disposition: Still a Patient <Jossy Mae APRN - Last Filed: 08/02/24 19:51> Condition: Stable <Jossy Mae APRN - Last Filed: 08/02/24 19:51>
[2024-08-02 14:32] LABS: Basophils Absolute Auto 0.1 K/mm3 (0.0-0.1); Basophils Percent Auto 1.4 % (0.2-1.2); Eosinophils Percent Auto 0.1 % (0-4.4); Hemoglobin 16.2 g/dL (12.0-15.0); Immature Granulocyte Absolute 0.02 K/mm3 (0.00-0.031); Immature Granulocyte Percent A 0.3 % (0-0.5); Lymphocytes Absolute Auto 2.63 K/mm3 (0.9-3.2); Lymphocytes Percent Auto 34.5 % (18.3-44.2); Mean Corpuscular HGB Conc 33.8 g/dl (32-36); Mean Corpuscular Hemoglobin 31.5 pg (26-34); Mean Corpuscular Volume 93.2 fl (80-100); Mean Platelet Volume 10.8 fl (7.4-10.4); Monocytes Absolute Auto 0.4 K/mm3 (0.1-0.6); Monocytes Percent Auto 5.6 % (2.6-8.5); Neutrophils Absolute Auto 4.4 K/mm3 (1.3-6.7); Neutrophils Percent Auto 58.1 % (45.5-73.1); Platelet Count Result 235 k/mm3 (150-375); Red Blood Count 5.15 M/mm3 (4.2-5.4); White Blood Count 7.6 K/mm3 (4.5-10.0)
[2024-08-02] MEDS: NICOTINE (*PBKC) 21 MG PATCH 1 PATCH TRANSDERM (14:38)
[2024-08-02 14:42] LABS: Alanine Aminotransferase 69 U/L (6-35); Albumin Level 4.6 g/dL (3.5-5.1); Alkaline Phosphatase 103 U/L (38-126); Anion Gap 17 mmol/L (4-12); Aspartate Amino Transferase 66 U/L (14-36); Bilirubin,Total 0.7 mg/dL (0.2-1.3); Blood Urea Nitrogen 11 mg/dL (7-17); Calcium 8.4 mg/dL (8.4-10.2); Carbon Dioxide 22 mmol/L (22-30); Chloride 101 mmol/L (98-107); Estimated CRCL calculation 149 ml/min; Estimated Glomerular Filt Rate > 60; Ethanol 263 mg/dL (<10); Glucose 94 mg/dL (65-110); Potassium 3.3 mmol/L (3.4-5.0); Sodium 140 mmol/L (137-145)
[2024-08-02 15:13] LABS: Thyroid Stimulating Hormone 0.509 uIU/mL (0.465-4.680)
[2024-08-02] MEDS: POTASSIUM CHLORIDE 20 MEQ PACKET (FOR LIQUID) 40 MEQ PO (15:33)
[2024-08-02] MEDS: SODIUM CHLORIDE 0.9% IV 1,000 ML 999 ML IV CONT (15:34)
[2024-08-02 15:44] LABS: Add Urine Microscopic? YES; Appearance Urine Clear (Clear); Bacteria Urine Rare /hpf; Bilirubin Urine Negative (Negative); Blood Urine 1+ (Negative); Color Urine Yellow (Yellow); Glucose Urine UA Negative (Negative); Ketones Urine 3+ mg/dL (Negative); Leukocyte Esterase Ur Negative LEU/UL (Negative); Nitrate Urine Negative (Negative); Non Pathogenic Casts 0-2; Protein Urine Trace mg/dL (Negative); Specific Grav Ur 1.019 (1.001-1.035); Squamous Epithelial Cell Urine Few /hpf (Few); WBC Urine 0-5 /hpf (0-3); pH Urine 5.5 (5.0-9.0)
[2024-08-02 16:07] LABS: Amphetamine Screen Urine Negative (Negative); Barbiturate Screen Urine Negative (Negative); Benzodiazepines Screen Urine Negative (Negative); Cannabinoid Screen Urine Positive (Negative); Cocaine Screen Urine Negative (Negative); Methadone Screen Urine Negative (Negative); Opiate Screen Urine Negative (Negative); Phencyclidine Screen Urine Negative (Negative)
--- NOTE | 2024-08-02 19:05 | PC.NURSE ---
pt stating she is ready to go home and she no longer has sad/S.I. thoughts at this time. Pt states she had too much drink and was just sad about her sister. State I said stupid shit when i was drinking. ERP at bedside discussing that pt needs to be assessed by psych eval.
[2024-08-02 19:11] LABS: Magnesium 1.9 mg/dL (1.6-2.3)
--- NOTE | 2024-08-02 20:50 | PC.NURSE ---
Pt upset about bed in 15 being uncomfortable and that her nicotine patch did not work. Spoke with Xochilt, who took over for Jossy for pt who states pt received the highest dose of nicotine possible. I informed pt that when a room with a more comfortable bed became available, we could move her again, but that it was possible she may have to move back into 15 if census remained high. Pt verbalized understanding. Cool rag provided as requested.
[2024-08-03] VITALS (17 sets, daily range): BP systolic 137–191; BP diastolic 72–102; PULSE 76–113; RESP 17–25; TEMP 36.6–36.9; O2SAT 93–99; BMI 35.2
[2024-08-03 01:24] LABS: Ethanol 50 mg/dL (<10)
[2024-08-03] MEDS: chlordiazePOXIDE (*CRX) 25 MG CAPSULE 50 MG PO ×5 (01:26→23:27)
[2024-08-03] MEDS: THIAMINE HCL INJ 100 MG, FOLIC ACID INJ 1 MG, MAGNESIUM SULFATE INJ 1 GM, MULTIVITAMINS... IV CONT (01:55)
[2024-08-03] MEDS: cloNIDine HCL 0.1 MG TABLET PO (02:07)
[2024-08-03] MEDS: LACTATED RINGERS 1,000 ML 999 ML IV CONT ×2 (03:53→05:15)
--- NOTE | 2024-08-03 03:54 | ADMGEN ---
This patient, Marva Joyner, was admitted to Intensive Care Unit-4 at 0300. Patient/family oriented to hospital policies and general routines including ID bracelet, bed and alarms, visiting hours, pain management, procedures, bathroom and other care routines, personal items, smoking policy, room service/diet, and visiting hours. Information on how to activate the Rapid Response Team has been discussed. Patient/Family are encouraged to report perceived risks to care and to ask questions if they do not understand what they are told or what they should do.
[2024-08-03 04:13] LABS: Alanine Aminotransferase 64 U/L (6-35); Albumin Level 4.5 g/dL (3.5-5.1); Alkaline Phosphatase 95 U/L (38-126); Anion Gap 14 mmol/L (4-12); Aspartate Amino Transferase 65 U/L (14-36); Bilirubin,Total 1.2 mg/dL (0.2-1.3); Blood Urea Nitrogen 5 mg/dL (7-17); Calcium 8.4 mg/dL (8.4-10.2); Carbon Dioxide 22 mmol/L (22-30); Chloride 102 mmol/L (98-107); Estimated CRCL calculation 192 ml/min; Estimated Glomerular Filt Rate > 60; Glucose 78 mg/dL (65-110); Magnesium 1.7 mg/dL (1.6-2.3); Phosphorus 1.9 mg/dL (2.5-4.5); Potassium 3.7 mmol/L (3.4-5.0); Sodium 138 mmol/L (137-145)
[2024-08-03] MEDS: LACTATED RINGERS 900 ML 999 ML IV CONT (07:37)
[2024-08-03] MEDS: LORazepam INJ (*CRX) 2 MG/ML VIAL IV PUSH (07:40)
[2024-08-03] MEDS: THIAMINE HCL 200 MG/2 ML VIAL 100 MG IV PUSH (09:06)
[2024-08-03 11:44] LABS: Glucose Point of Care 105 mg/dl (65-105)
[2024-08-03] MEDS: POTASSIUM PHOS/SODIUM PHOS 250 MG TABLET PO (12:45)
[2024-08-03] MEDS: NICOTINE (*PBKC) 21 MG PATCH 1 PATCH TRANSDERM (12:45)
--- NOTE | 2024-08-03 14:46 | PM.IMHP ---
H&P: HPI History of Present Illness Date/Time: 08/03/24 14:46 Chief Complaint: Suicidal thoughts Narrative: ERHPI Narrative: Patient is a 58-year-old female who presents to the ER with suicidal thoughts. She reports her sister was killed in December of 2023. Patient reports she has been unable to manage her grief appropriately since then. She reports she has been drinking alcohol to numb my pain. Patient reports this morning she drank a lot! She reports I don't know what to do anymore. I can't cope. I've gone to AA and it doesn't work. Pt reports she has had suicidal ideation intermittently, but this morning her feelings became strong. She endorses a history of ?heart problems and high blood pressure. Patient also reports she is a cigarette smoker. She denies any physical symptoms of pain, recent fevers, lower extremity swelling, or cough. <Jossy Mae APRN Upon arrival patient alcohol level was 50 and patient with history fo alcohol withdrawl seizures patient is place on CIMT protocol and being monitored, patient with suicidal ideation there is a sitter in the room and is present room, once patient risk of DT is minimal after 72 under CIWA protocol with Librium and will clear patient to be assess by the crisis team, patient will benefit going into inpatient psychiatrist care, will monitor and plan. Review of Systems Review of Systems: All systems reviewed & are unremarkable except as noted in HPI and below PMFSH Past Medical History Medical History BMI greater than 30 BMI 31.0-31.9,adult BMI 30.0-30.9,adult BMI 32.0-32.9,adult Surgical History Surgical History H/O Spinal surgery Family History Family History Father Alcoholic cirrhosis of liver Mother , C-diff C. difficile colitis Hypertension Sibling Diabetes mellitus Heart disease Social History Social History Smoking status: Current every day smoker Tobacco type: cigarettes Second hand tobacco smoke exposure: Yes Alcohol intake: current Drinks per week: 14 Substance use: current Substance use type: does not use Do You Feel Safe in your Home?: Yes Lack of Transportation: YES Lack of Food: Never True Current Housing: I Have Housing Concerned About Future Housing: No Difficulty Paying Gas/Electric Bills: No Difficulty Paying for Meds: No Currently Unemployed: No Education: Associate Degree Difficulty w/ Childcare or Family Care: No Living arrangements: with roommate(s) Occupation/Education: occupation Additional occupation/education comments: [employer] Gender identity (if verbalized by the patient): Female Spiritual care concerns: No Meds Home Medications and Allergies Home Medications ?Medication ?Instructions ?Recorded ?Confirmed ?Type No Home Medications 08/03/24 08/03/24 History Allergies Allergy/AdvReac Type Severity Reaction Status Date / Time No Known Allergies Allergy Mild Verified 08/02/24 13:50 Vital Signs Vital Signs - 24 hr 08/02/24 15:01 08/02/24 15:36 08/02/24 18:03 Temperature 36.8 C Pulse Rate 104 H Pulse Rate [Bilateral Radial Palpation] Respiratory Rate 20 Blood Pressure 124/67 183/96 H Pulse Oximetry 95 96 Oxygen Delivery 08/03/24 01:17 08/03/24 01:40 08/03/24 01:46 Temperature Pulse Rate 103 H 102 H 105 H Pulse Rate [Bilateral Radial Palpation] Respiratory Rate 17 18 23 H Blood Pressure 191/102 H 178/90 H 165/76 H Pulse Oximetry 97 98 99 Oxygen Delivery 08/03/24 03:30 08/03/24 04:00 08/03/24 04:00 Temperature 36.6 C Pulse Rate 95 Pulse Rate [Bilateral Radial Palpation] 104 H 104 H Respiratory Rate 18 Blood Pressure 179/84 H 163/79 H 163/79 H Pulse Oximetry 95 Oxygen Delivery 08/03/24 04:00 08/03/24 04:00 08/03/24 06:00 Temperature Pulse Rate 97 105 H Pulse Rate [Bilateral Radial Palpation] Respiratory Rate Blood Pressure Pulse Oximetry Oxygen Delivery Room Air 08/03/24 07:39 08/03/24 08:00 08/03/24 08:00 Temperature Pulse Rate 112 H Pulse Rate [Bilateral Radial Palpation] 109 H 105 H Respiratory Rate 25 H Blood Pressure 137/72 Pulse Oximetry 94 Oxygen Delivery 08/03/24 08:00 08/03/24 08:05 08/03/24 10:00 Temperature 36.7 C Pulse Rate 113 H 100 Pulse Rate [Bilateral Radial Palpation] Respiratory Rate Blood Pressure Pulse Oximetry Oxygen Delivery 08/03/24 12:00 08/03/24 12:00 08/03/24 12:00 Temperature 36.9 C Pulse Rate 101 H 98 Pulse Rate [Bilateral Radial Palpation] 101 H Respiratory Rate 20 Blood Pressure 165/87 H Pulse Oximetry 94 Oxygen Delivery Exam Narrative: Patient is comfortable, NAD HEENT: eyes are clear and none icteric LUNGS:CTA HEART: RR S1S2 ABD: BS+, Soft and nontender Lower extremities: no edema SKIN: nonjaundiced Neuro: grossly intact. H&P: Results Labs Labs: BMP 08/03/24 03:44 Sodium 138 Potassium 3.7 Chloride 102 Carbon Dioxide 22 BUN 5 L D Creatinine 0.29 L Glucose 78 Calcium 8.4 Liver Function 08/03/24 Range/Units 03:44 Total Bilirubin 1.2 (0.2-1.3) mg/dL AST 65 H (14-36) U/L ALT 64 H (6-35) U/L Alkaline Phosphatase 95 (38-126) U/L Albumin 4.5 (3.5-5.1) g/dL Urine 08/02/24 Range/Units 15:30 Urine Color Yellow (Yellow) Urine Appearance Clear (Clear) Urine pH 5.5 (5.0-9.0) Ur Specific [place] 1.019 (1.001-1.035) Urine Protein Trace (Negative) mg/dL Urine Glucose (UA) Negative (Negative) mg/dL Assessment and Plan Assessment and plan (1) Suicidal ideation: Code(s): R45.851 - Suicidal ideations Status: Acute (2) Alcohol abuse: Code(s): F10.10 - Alcohol abuse, uncomplicated Status: Acute (3) Alcohol withdrawal: Qualifiers: Complication of substance-induced condition: uncomplicated Qualified Code(s): F10.930 - Alcohol use, unspecified with withdrawal, uncomplicated Code(s): F10.939 - Alcohol use, unspecified with withdrawal, unspecified Status: Acute (4) Anxiety: Code(s): F41.9 - Anxiety disorder, unspecified Status: Acute (5) Essential hypertension: Code(s): I10 - Essential (primary) hypertension Status: Acute Plan Upon arrival patient alcohol level was 50 and patient with history fo alcohol withdrawl seizures patient is place on CIWA protocol and being monitored, patient with suicidal ideation there is a sitter in the room and is present room, once patient risk of DT is minimal after 72 under CIWA protocol with Librium and will clear patient to be assess by the crisis team, patient will benefit going into inpatient psychiatrist care, will monitor and plan. Quality VTE Prophylaxis VTE prophylaxis: mechanical ordered Hospitalist [facility] Advance Care Plan I have confirmed that the patient's Advanced Care Plan is present, code status is documented, or surrogate decision maker is listed in patient medical record.: Yes Medication Reconciliation I have utilized all available resources to obtain, update and review the patients current medications (includes all prescriptions, OTC, herbals, cannabis, and nutritional supplements).: Yes
[2024-08-03 17:26] LABS: Glucose Point of Care 107 mg/dl (65-105)
[2024-08-03 23:35] LABS: Glucose Point of Care 97 mg/dl (65-105)
[2024-08-04] VITALS (17 sets, daily range): BP systolic 133–165; BP diastolic 78–106; PULSE 70–112; RESP 18–23; TEMP 36.5–37.3; O2SAT 96–97
[2024-08-04 05:28] LABS: Basophils Absolute Auto 0.1 K/mm3 (0.0-0.1); Basophils Percent Auto 1.4 % (0.2-1.2); Eosinophils Absolute Auto 0.1 K/mm3 (0-0.3); Eosinophils Percent Auto 1.4 % (0-4.4); Hematocrit 49.9 % (37.0-47.0); Hemoglobin 15.7 g/dL (12.0-15.0); Immature Granulocyte Absolute 0.01 K/mm3 (0.00-0.031); Immature Granulocyte Percent A 0.2 % (0-0.5); Lymphocytes Percent Auto 39.6 % (18.3-44.2); Mean Corpuscular HGB Conc 31.5 g/dl (32-36); Mean Corpuscular Hemoglobin 31.9 pg (26-34); Mean Corpuscular Volume 101.4 fl (80-100); Mean Platelet Volume 11.3 fl (7.4-10.4); Monocytes Absolute Auto 0.5 K/mm3 (0.1-0.6); Neutrophils Percent Auto 46.4 % (45.5-73.1); Platelet Count Result 152 k/mm3 (150-375); Red Blood Count 4.92 M/mm3 (4.2-5.4); Red Cell Distribution Width 15.6 % (11.5-14.5); White Blood Count 4.3 K/mm3 (4.5-10.0)
[2024-08-04] MEDS: chlordiazePOXIDE (*CRX) 25 MG CAPSULE 50 MG PO ×2 (06:15→12:22)
[2024-08-04 06:42] LABS: Magnesium 1.8 mg/dL (1.6-2.3)
[2024-08-04] MEDS: THIAMINE HCL 200 MG/2 ML VIAL 100 MG IV PUSH (08:53)
[2024-08-04] MEDS: NICOTINE (*PBKC) 21 MG PATCH 1 PATCH TRANSDERM (08:53)
[2024-08-04] MEDS: amLODIPine BESYLATE 5 MG TABLET PO (11:05)
--- NOTE | 2024-08-04 15:38 | PM.IMPN ---
Progress Note: A&P Assessment and Plan (1) Suicidal ideation: Code(s): R45.851 - Suicidal ideations Status: Acute (2) Alcohol abuse: Code(s): F10.10 - Alcohol abuse, uncomplicated Status: Acute (3) Alcohol withdrawal: Qualifiers: Complication of substance-induced condition: uncomplicated Qualified Code(s): F10.930 - Alcohol use, unspecified with withdrawal, uncomplicated Code(s): F10.939 - Alcohol use, unspecified with withdrawal, unspecified Status: Acute (4) Anxiety: Code(s): F41.9 - Anxiety disorder, unspecified Status: Acute (5) Essential hypertension: Code(s): I10 - Essential (primary) hypertension Status: Acute Plan Upon arrival patient alcohol level was 50 and patient with history fo alcohol withdrawl seizures patient is place on CIWA protocol and being monitored, patient with suicidal ideation there is a sitter in the room and is present room, once patient risk of DT is minimal after 48 to 72hrs under CIWA protocol with Librium, patient had been on librium 50mg q6, will dc and place patient on librium 25mg po q6 PRN, and will monitor, will clear patient to be assess by the crisis team possibly tomorrow, patient will benefit going into inpatient psychiatrist care, will monitor and plan. . Subjective Date/time seen: 08/04/24 15:38 Interval history: Upon arrival patient alcohol level was 50 and patient with history fo alcohol withdrawl seizures patient is place on CIWA protocol and being monitored, patient with suicidal ideation there is a sitter in the room and is present room, once patient risk of DT is minimal after 48 to 72hrs under CIWA protocol with Librium, patient had been on librium 50mg q6, will dc and place patient on librium 25mg po q6 PRN, and will monitor, will clear patient to be assess by the crisis team possibly tomorrow, patient will benefit going into inpatient psychiatrist care, will monitor and plan. . Review of Systems Review of Systems: All systems reviewed & are unremarkable except as noted in HPI and below Exam Narrative: Patient is comfortable, NAD HEENT: eyes are clear and none icteric LUNGS:CTA HEART: RR S1S2 ABD: BS+, Soft and nontender Lower extremities: no edema SKIN: nonjaundiced Neuro: grossly intact. Objective Data Vital Signs Vital Signs: Vital Signs - 24 hr 08/03/24 16:00 08/03/24 16:00 08/03/24 18:00 Temperature Pulse Rate 91 91 90 Pulse Rate [Monitor] Respiratory Rate 18 Blood Pressure 165/98 H Pulse Oximetry 94 08/03/24 20:00 08/03/24 20:00 08/03/24 22:00 Temperature 36.6 C Pulse Rate 95 95 84 Pulse Rate [Monitor] Respiratory Rate 23 H Blood Pressure 152/91 H Pulse Oximetry 96 08/03/24 23:24 08/04/24 00:00 08/04/24 02:00 Temperature 36.6 C Pulse Rate 76 78 84 Pulse Rate [Monitor] Respiratory Rate 20 Blood Pressure 160/75 H Pulse Oximetry 93 08/04/24 04:00 08/04/24 04:00 08/04/24 06:00 Temperature 36.5 C Pulse Rate 81 86 70 Pulse Rate [Monitor] Respiratory Rate 20 Blood Pressure 156/106 H Pulse Oximetry 96 08/04/24 08:00 08/04/24 08:00 08/04/24 08:00 Temperature Pulse Rate 72 73 Pulse Rate [Monitor] 100 Respiratory Rate 23 H Blood Pressure 165/78 H Pulse Oximetry 96 08/04/24 08:53 08/04/24 10:00 08/04/24 10:55 Temperature 37.3 C Pulse Rate 100 Pulse Rate [Monitor] Respiratory Rate Blood Pressure 133/85 Pulse Oximetry 08/04/24 11:54 08/04/24 11:57 08/04/24 12:00 Temperature 36.6 C Pulse Rate 76 Pulse Rate [Monitor] 94 Respiratory Rate 18 Blood Pressure 137/90 Pulse Oximetry 96 08/04/24 12:00 08/04/24 14:00 Temperature Pulse Rate 112 H 96 Pulse Rate [Monitor] Respiratory Rate Blood Pressure Pulse Oximetry Intake/Output Intake/Output: Intake & Output 08/01/24 08/02/24 08/03/24 08/04/24 23:59 23:59 23:59 23:59 Intake Total 1000 1560 820 Output Total 500 Balance 1000 1060 820 Meds/Results Medications: Active Medications Generic Name Dose Route Start Last Admin Trade Name Freq PRN Reason Stop Dose Admin Amlodipine Besylate 5 mg 08/04/24 10:05 08/04/24 11:05 Amlodipine Besylate 5 Mg Tablet PO 5 mg DAILY URMILA Administration Chlordiazepoxide HCl 50 mg 08/03/24 06:00 08/04/24 12:22 Chlordiazepoxide (*Crx) 25 Mg Capsule PO 50 mg Q6HR URMILA Administration Lorazepam 2 mg 08/03/24 02:03 08/03/24 07:40 Lorazepam Inj (*Crx) 2 Mg/Ml Vial IV PUSH 2 mg Q2H PRN Administration CIWA > 15 Lorazepam 2 mg 08/03/24 02:03 Lorazepam Inj (*Crx) 2 Mg/Ml Vial IV PUSH Q4H PRN CIWA 8-15 Nicotine 1 patch 08/03/24 10:50 08/04/24 08:53 Nicotine (*Pbkc) 21 Mg Patch TRANSDERM 1 patch DAILY URMILA Administration Ondansetron HCl 4 mg 08/03/24 02:03 Ondansetron Inj 4 Mg/2 Ml Vial IV PUSH Q6H PRN Nausea And Vomiting Thiamine HCl 100 mg 08/03/24 09:00 08/04/24 08:53 Thiamine Hcl 200 Mg/2 Ml Vial IV PUSH 100 mg DAILY URMILA Administration Labs Labs: Laboratory Results - last 24 hr 08/03/24 08/03/24 08/04/24 17:22 23:26 03:59 WBC 4.3 L RBC 4.92 Hgb 15.7 H Hct 49.9 H MCV 101.4 H D MCH 31.9 MCHC 31.5 L RDW 15.6 H Plt Count 152 MPV 11.3 H Immature Gran % (Auto) 0.2 Neut % (Auto) 46.4 Lymph % (Auto) 39.6 [place] % (Auto) 11.0 H Eos % (Auto) 1.4 Baso % (Auto) 1.4 H Lymph # (Auto) 1.70 [place] # (Auto) 0.5 Eos # (Auto) 0.1 Baso # (Auto) 0.1 Abs Immat Gran (auto) 0.01 Absolute Neuts (auto) 2.0 Absolute Nucleated RBC 0.000 Nucleated RBC % 0.0 POC Capillary Glucose 107 H 97 Magnesium 08/04/24 06:07 WBC RBC Hgb Hct MCV MCH MCHC RDW Plt Count MPV Immature Gran % (Auto) Neut % (Auto) Lymph % (Auto) [place] % (Auto) Eos % (Auto) Baso % (Auto) Lymph # (Auto) [place] # (Auto) Eos # (Auto) Baso # (Auto) Abs Immat Gran (auto) Absolute Neuts (auto) Absolute Nucleated RBC Nucleated RBC % POC Capillary Glucose Magnesium 1.8 Quality VTE Prophylaxis VTE prophylaxis: mechanical ordered
--- NOTE | 2024-08-04 20:08 | PC.NURSE ---
Pt states that her cell phone is missing. Staff looked through pt's belongings with her, no cell phone noted with belongings. Kodi, charge account identification clerk, looked in unit safe, no cell in safe. Pt states her spouse brought her cell phone to ICU yesterday during the day. lieutenant shift supervisor staff has no account of cell phone.
[2024-08-04] MEDS: chlordiazePOXIDE (*CRX) 25 MG CAPSULE PO (22:09)
--- NOTE | 2024-08-04 22:19 | PC.NURSE ---
Pt states she is refusing VS and assessments for the rest of the night. Pt states she wants to sleep and does not want to be bothered. Remains on surveillance monitor. Pt is otherwise calm and cooperative.
[2024-08-05] VITALS (7 sets, daily range): BP systolic 145–161; BP diastolic 88–98; PULSE 77–108; RESP 12–23; TEMP 36.4–36.8; O2SAT 95–99
[2024-08-05 04:09] LABS: Basophils Absolute Auto 0.1 K/mm3 (0.0-0.1); Basophils Percent Auto 1.1 % (0.2-1.2); Eosinophils Absolute Auto 0.1 K/mm3 (0-0.3); Eosinophils Percent Auto 1.7 % (0-4.4); Hematocrit 46.3 % (37.0-47.0); Hemoglobin 15.5 g/dL (12.0-15.0); Immature Granulocyte Absolute 0.01 K/mm3 (0.00-0.031); Immature Granulocyte Percent A 0.2 % (0-0.5); Immature Platelet Fraction Pct 5.8 % (0.9-11.2); Lymphocytes Percent Auto 43.1 % (18.3-44.2); Mean Corpuscular HGB Conc 33.5 g/dl (32-36); Mean Corpuscular Hemoglobin 32.2 pg (26-34); Mean Corpuscular Volume 96.1 fl (80-100); Mean Platelet Volume 11.6 fl (7.4-10.4); Monocytes Absolute Auto 0.4 K/mm3 (0.1-0.6); Monocytes Percent Auto 9.5 % (2.6-8.5); Neutrophils Absolute Auto 2.1 K/mm3 (1.3-6.7); Neutrophils Percent Auto 44.4 % (45.5-73.1); Platelet Count Result 140 k/mm3 (150-375); Red Blood Count 4.82 M/mm3 (4.2-5.4); White Blood Count 4.6 K/mm3 (4.5-10.0)
[2024-08-05 04:17] LABS: Magnesium 1.7 mg/dL (1.6-2.3)
[2024-08-05] MEDS: chlordiazePOXIDE (*CRX) 25 MG CAPSULE PO (04:17)
[2024-08-05] MEDS: amLODIPine BESYLATE 5 MG TABLET PO (08:48)
[2024-08-05] MEDS: THIAMINE HCL 200 MG/2 ML VIAL 100 MG IV PUSH (08:49)
[2024-08-05 09:18] LABS: Alanine Aminotransferase 60 U/L (6-35); Albumin Level 3.7 g/dL (3.5-5.1); Alkaline Phosphatase 88 U/L (38-126); Anion Gap 5 mmol/L (4-12); Aspartate Amino Transferase 67 U/L (14-36); Bilirubin,Total 0.9 mg/dL (0.2-1.3); Blood Urea Nitrogen 13 mg/dL (7-17); Calcium 8.6 mg/dL (8.4-10.2); Carbon Dioxide 28 mmol/L (22-30); Chloride 107 mmol/L (98-107); Estimated CRCL calculation 158 ml/min; Estimated Glomerular Filt Rate > 60; Glucose 105 mg/dL (65-110); Sodium 140 mmol/L (137-145)
[2024-08-05] MEDS: POTASSIUM CHLORIDE 20 MEQ ER TABLET 40 MEQ PO (10:05)
--- NOTE | 2024-08-05 10:16 | P.PNIM_ITS ---
Progress Note: A&P Assessment and Plan (1) Suicidal ideation: Code(s): R45.851 - Suicidal ideations Status: Acute (2) Alcohol abuse: Code(s): F10.10 - Alcohol abuse, uncomplicated Status: Acute (3) Alcohol withdrawal: Qualifiers: Complication of substance-induced condition: uncomplicated Qualified Code(s): F10.930 - Alcohol use, unspecified with withdrawal, uncomplicated Code(s): F10.939 - Alcohol use, unspecified with withdrawal, unspecified Status: Acute (4) Anxiety: Code(s): F41.9 - Anxiety disorder, unspecified Status: Acute (5) Essential hypertension: Code(s): I10 - Essential (primary) hypertension Status: Acute Plan Upon arrival patient alcohol level was 50 and patient with history fo alcohol withdraw seizures patient is place on CIWA protocol and being monitored, patient with suicidal ideation there is a sitter in the room and is present room, once patient risk of DT is minimal after 48 to 72hrs under CIWA protocol with Librium, patient had been on Librium 50mg q6, on 08/04 dc and placed patient on Librium 25mg po q6 PRN, today patient is stable does not show any sign or symptoms or withdraw will clear patient to be assess by the crisis team today, patient will benefit going into inpatient psychiatrist care, will monitor and plan. . Subjective Date/time seen: 08/05/24 10:16 Interval history: Upon arrival patient alcohol level was 50 and patient with history fo alcohol withdraw seizures patient is place on CIWA protocol and being monitored, patient with suicidal ideation there is a sitter in the room and is present room, once patient risk of DT is minimal after 48 to 72hrs under CIWA protocol with Librium, patient had been on Librium 50mg q6, on 08/04 dc and placed patient on Librium 25mg po q6 PRN, today patient is stable does not show any sign or symptoms or withdraw will clear patient to be assess by the crisis team today, patient will benefit going into inpatient psychiatrist care, will monitor and plan. . Review of Systems Review of Systems: All systems reviewed & are unremarkable except as noted in HPI and below Exam Narrative: Patient is comfortable, NAD HEENT: eyes are clear and none icteric LUNGS:CTA HEART: RR S1S2 ABD: BS+, Soft and nontender Lower extremities: no edema SKIN: nonjaundiced Neuro: grossly intact. Objective Data Vital Signs Vital Signs: Vital Signs - 24 hr 08/04/24 10:55 08/04/24 11:54 08/04/24 11:57 Temperature 36.6 C Pulse Rate 76 Pulse Rate [Monitor] Respiratory Rate 18 Blood Pressure 133/85 137/90 Pulse Oximetry 96 08/04/24 12:00 08/04/24 12:00 08/04/24 14:00 Temperature Pulse Rate 112 H 96 Pulse Rate [Monitor] 94 Respiratory Rate Blood Pressure Pulse Oximetry 08/04/24 16:00 08/04/24 16:00 08/04/24 16:00 Temperature Pulse Rate 98 91 Pulse Rate [Monitor] 87 Respiratory Rate 18 Blood Pressure 146/94 H Pulse Oximetry 96 08/04/24 18:00 08/04/24 19:52 08/04/24 20:00 Temperature 36.7 C Pulse Rate 90 90 91 Pulse Rate [Monitor] Respiratory Rate 18 Blood Pressure 153/87 H Pulse Oximetry 97 08/04/24 22:00 08/05/24 00:00 08/05/24 00:00 Temperature Pulse Rate 87 80 80 Pulse Rate [Monitor] Respiratory Rate 12 Blood Pressure Pulse Oximetry 08/05/24 02:00 08/05/24 04:00 08/05/24 04:00 Temperature Pulse Rate 77 82 82 Pulse Rate [Monitor] Respiratory Rate 20 Blood Pressure 161/94 H Pulse Oximetry 99 08/05/24 06:00 08/05/24 08:00 08/05/24 08:00 Temperature 36.4 C Pulse Rate 80 108 H Pulse Rate [Monitor] 102 H Respiratory Rate 23 H Blood Pressure 145/98 H Pulse Oximetry 95 08/05/24 08:00 08/05/24 10:00 Temperature Pulse Rate 104 H 98 Pulse Rate [Monitor] Respiratory Rate Blood Pressure Pulse Oximetry Intake/Output Intake/Output: Intake & Output 08/02/24 08/03/24 08/04/24 08/05/24 23:59 23:59 23:59 23:59 Intake Total 1000 1560 1300 558 Output Total 500 Balance 1000 1060 1300 558 Meds/Results Medications: Active Medications Generic Name Dose Route Start Last Admin Trade Name Freq PRN Reason Stop Dose Admin Amlodipine Besylate 5 mg 08/04/24 10:05 08/05/24 08:48 Amlodipine Besylate 5 Mg Tablet PO 5 mg DAILY URMILA Administration Chlordiazepoxide HCl 25 mg 08/04/24 15:41 08/05/24 04:17 Chlordiazepoxide (*Crx) 25 Mg Capsule PO 25 mg Q6H PRN Administration Withdrawal Lorazepam 2 mg 08/03/24 02:03 08/03/24 07:40 Lorazepam Inj (*Crx) 2 Mg/Ml Vial IV PUSH 2 mg Q2H PRN Administration CIWA > 15 Lorazepam 2 mg 08/03/24 02:03 Lorazepam Inj (*Crx) 2 Mg/Ml Vial IV PUSH Q4H PRN CIWA 8-15 Nicotine 1 patch 08/03/24 10:50 08/05/24 08:50 Nicotine (*Pbkc) 21 Mg Patch TRANSDERM Not Given DAILY URMILA Ondansetron HCl 4 mg 08/03/24 02:03 Ondansetron Inj 4 Mg/2 Ml Vial IV PUSH Q6H PRN Nausea And Vomiting Thiamine HCl 100 mg 08/03/24 09:00 08/05/24 08:49 Thiamine Hcl 200 Mg/2 Ml Vial IV PUSH 100 mg DAILY URMILA Administration Labs Labs: Laboratory Results - last 24 hr 08/05/24 03:56 WBC 4.6 RBC 4.82 Hgb 15.5 H Hct 46.3 MCV 96.1 D MCH 32.2 MCHC 33.5 RDW 15.0 H Plt Count 140 L MPV 11.6 H Immature Gran % (Auto) 0.2 Neut % (Auto) 44.4 L Lymph % (Auto) 43.1 [place] % (Auto) 9.5 H Eos % (Auto) 1.7 Baso % (Auto) 1.1 Lymph # (Auto) 2.00 [place] # (Auto) 0.4 Eos # (Auto) 0.1 Baso # (Auto) 0.1 Abs Immat Gran (auto) 0.01 Absolute Neuts (auto) 2.1 Absolute Nucleated RBC 0.000 Nucleated RBC % 0.0 % Immature Plt Fraction 5.8 Sodium 140 Potassium 3.0 L Chloride 107 Carbon Dioxide 28 Anion Gap 5 BUN 13 D Creatinine 0.37 L Estim Creat Clear Calc 158 Estimated GFR > 60 Glucose 105 Calcium 8.6 Magnesium 1.7 Total Bilirubin 0.9 AST 67 H ALT 60 H Alkaline Phosphatase 88 Total Protein 6.0 L Albumin 3.7 Quality VTE Prophylaxis VTE prophylaxis: mechanical ordered
--- NOTE | 2024-08-05 13:05 | PM.DS ---
DS: Admitting Diagnosis Discharge Date 08/05/24 Admitting Diagnosis Suicidal thoughts DS: Discharge Diagnosis Discharge Diagnosis (1) Suicidal ideation: Code(s): R45.851 - Suicidal ideations Status: Acute (2) Anxiety: Code(s): F41.9 - Anxiety disorder, unspecified Status: Acute (3) Alcohol abuse: Code(s): F10.10 - Alcohol abuse, uncomplicated Status: Acute (4) Alcohol withdrawal: Qualifiers: Complication of substance-induced condition: uncomplicated Qualified Code(s): F10.930 - Alcohol use, unspecified with withdrawal, uncomplicated Code(s): F10.939 - Alcohol use, unspecified with withdrawal, unspecified Status: Acute (5) Essential hypertension: Code(s): I10 - Essential (primary) hypertension Status: Acute Plan Upon arrival patient alcohol level was 50 and patient with history fo alcohol withdraw seizures patient is place on [facility] protocol and being monitored, patient with suicidal ideation there is a sitter in the room and is present room, once patient risk of DT is minimal after 48 to 72hrs under [facility] protocol with Librium, patient had been on Librium 50mg q6, on 08/04 dc and placed patient on Librium 25mg po q6 PRN, today patient is stable does not show any sign or symptoms or withdraw will clear patient to be assess by the crisis team today, patient will benefit going into inpatient psychiatrist care, will monitor and plan. . patient clinical symptom have improved and patient was seen by crisis team and patient is safe to return home. DS: Summary Hospital Course Hospital Course: Upon arrival patient alcohol level was 50 and patient with history fo alcohol withdraw seizures patient is place on [facility] protocol and being monitored, patient with suicidal ideation there is a sitter in the room and is present room, once patient risk of DT is minimal after 48 to 72hrs under [facility] protocol with Librium, patient had been on Librium 50mg q6, on 08/04 dc and placed patient on Librium 25mg po q6 PRN, today patient is stable does not show any sign or symptoms or withdraw will clear patient to be assess by the crisis team today, patient will benefit going into inpatient psychiatrist care, will monitor and plan. . patient clinical symptom have improved and patient was seen by crisis team and patient is safe to return home. Time Spent with Patient Time attestation: Total time spent providing and/or coordinating discharge services: Exam Narrative: Patient is comfortable, NAD HEENT: eyes are clear and none icteric LUNGS:CTA HEART: RR S1S2 ABD: BS+, Soft and nontender Lower extremities: no edema SKIN: nonjaundiced Neuro: grossly intact. DS: Data Data Completed and Pending Labs on day of discharge: Labs from last 24 hours 08/05/24 03:56 WBC 4.6 RBC 4.82 Hgb 15.5 H Hct 46.3 MCV 96.1 D MCH 32.2 MCHC 33.5 RDW 15.0 H Plt Count 140 L MPV 11.6 H Immature Gran % (Auto) 0.2 Neut % (Auto) 44.4 L Lymph % (Auto) 43.1 Sebastian % (Auto) 9.5 H Eos % (Auto) 1.7 Baso % (Auto) 1.1 Lymph # (Auto) 2.00 Sebastian # (Auto) 0.4 Eos # (Auto) 0.1 Baso # (Auto) 0.1 Abs Immat Gran (auto) 0.01 Absolute Neuts (auto) 2.1 Absolute Nucleated RBC 0.000 Nucleated RBC % 0.0 % Immature Plt Fraction 5.8 Sodium 140 Potassium 3.0 L Chloride 107 Carbon Dioxide 28 Anion Gap 5 BUN 13 D Creatinine 0.37 L Estim Creat Clear Calc 158 Estimated GFR > 60 Glucose 105 Calcium 8.6 Magnesium 1.7 Total Bilirubin 0.9 AST 67 H ALT 60 H Alkaline Phosphatase 88 Total Protein 6.0 L Albumin 3.7 Discharge Plan Discharge Attending physician on discharge: Aminata Jerome Consulting providers: Kristian Reyes; Xochilt Rashid; Marlen Fragoso Discharging Clinician: Will Ortega Patient Disposition: Home Activity: as tolerated Diet: heart healthy Discharge Instructions: patient to follow up with her primary care provider as soon as possible. patient is instructed if any symptoms redevelop to go to nearest ER. Patient Instructions: Antibiotic Form, Amlodipine (By mouth), How to Stop Smoking (GEN), Cigarette Smoking and Your Health (GEN), Stress (GEN), Depression (GEN), Abuse of Alcohol (DC), Help Prevent Suicide (GEN), Hypertension (GEN), Suicide Prevention (GEN) Patient Language: Croatian Stand Alone Forms: General Discharge Information Follow-up/Referrals: Hedy,Elsy Villagran, ODETTE [Primary Care Provider] - Discharge Medications: New amlodipine [Norvasc] 5 mg Tablet 5 mg PO DAILY Qty: 30 0RF nicotine [Nicoderm CQ] 21 mg/24 hr Patch 24 Hour 1 patch transdermal DAILY Qty: 28 0RF 400 mcg tablet,chewable 2 tablet PO DAILY Qty: 90 0RF thiamine HCl (vitamin B1) 100 mg capsule 100 mg PO DAILY Qty: 90 0RF Date of admission: 08/03/24 02:04 Primary Care Provider: StanislavElsy Admitting Provider: Aminata Jerome Attending physician on admission: Will Ortega Condition: Stable
== END 2024-08-05 13:48 | disposition home or self-care (01) ==
LOC: ANHED 08-03 02:10 → ANHICU 08-03 06:50
PROVIDERS: Physician Assistant; Admitting Provider Internal Medicine; Emergency Provider Registered Nurse; PCP Nurse Practitioner; Visit Provider Family Medicine
DX: F10.130 Alcohol abuse with withdrawal, uncomplicated (principal); Y90.2 Blood alcohol level of 40-59 mg/100 ml; R45.851 Suicidal ideations; F41.9 Anxiety disorder, unspecified; I10 Essential (primary) hypertension; F17.210 Nicotine dependence, cigarettes, uncomplicated; Z63.4 Disappearance and death of family member
CPT/HCPCS: 36415; 80053; 80307; 81001; 82077; 82948; 83735; 84100; 84443; 85025; 85027; 85055; 96360; 96374; 96375; 96376; 99285; A9270; G0378; G0379; J2060; J3411; J3475; J7030; J7120